=== PATIENT | female | born 1995 | race Caucasian/White ===

== ENCOUNTER 2019-03-20 23:51 | Inpatient (IN) ==
[2019-03-21] MEDS ORDERED: LACTATED RINGER'S 1,000 ML IV SCH ×3 (00:15→03:00)
[2019-03-21] MEDS ORDERED: CEFAZOLIN 2000MG 2,000 MG/15 ML SYR IV STA (00:25)
[2019-03-21] MEDS ORDERED: CITRIC ACID/SODIUM CITRATE 15 ML UDC PO STA (00:26)
[2019-03-21 00:37] LABS: Basophils # (auto) 0.01 K/uL (0-0.2); Basophils % (auto) 0.1 %; Eosinophils # (auto) 0.05 K/uL (0-0.5); Eosinophils % (auto) 0.6 %; Hematocrit (blood only) 32.5 % (37-47); Hemoglobin 10.9 g/dL (12.0-16.0); Immature Granulocytes # (auto) 0.02 K/uL (0.00-0.02); Immature Granulocytes % (auto) 0.2 %; Lymphocytes # (auto) 1.95 K/uL (1.2-3.4); Lymphocytes % (auto) 23.9 %; Mean Corpuscular Volume 83.8 fL (80-100); Mean Platelet Volume 12.3 fL (7.4-10.4); Monocytes # (auto) 0.67 K/uL (0.11-0.59); Monocytes % (auto) 8.2 %; Neutrophils # (auto) 5.45 K/uL (1.4-6.5); Platelet Count 131 K/uL (130-400); RDW Coefficient of Variation 15.1 % (11.5-14.5); RDW Standard Deviation 46.4 fL (36.4-46.3); Red Blood Count 3.88 M/uL (4.2-5.4); White Blood Count 8.15 K/uL (4.8-10.8)
[2019-03-21 00:39] LABS: Mean Corpuscular Hgb Conc 33.5 g/dL (32-36)
[2019-03-21] MEDS ORDERED: MoRPHine SULFATE PF 1 MG/ML 10 ML AMP/VIAL ONE (01:30)
[2019-03-21] MEDS ORDERED: fentaNYL citrate 100 MCG/2 ML VIAL ONE (01:30)
[2019-03-21] MEDS ORDERED: OXYTOCIN 10 UNITS/ML VIAL ONE ×2 (02:04→02:20)
[2019-03-21] MEDS ORDERED: ONDANSETRON INJ 2 MG/ML 2 ML VIAL ONE (02:07)
[2019-03-21] MEDS ORDERED: DEXAMETHASONE SOD INJ 4 MG/ML VIAL ONE (02:21)
[2019-03-21] MEDS ORDERED: BENZOCAINE 20% AER SPR 82.5 GM CAN EXT PRN (02:48)
[2019-03-21] MEDS ORDERED: DIPHTHERIA/TETANUS/PERTUSSIS 0.5 ML SYR/VIAL IM ONE (02:48)
[2019-03-21] MEDS ORDERED: SENNA 8.6 MG TAB PO PRN (02:48)
[2019-03-21] MEDS ORDERED: SUPERCREAM 0.870% 15 GM JAR EXT PRN (02:48)
[2019-03-21] MEDS ORDERED: MAGNESIUM HYDROXIDE SUSP 30 ML UDC PO PRN (02:48)
[2019-03-21] MEDS ORDERED: HYDROCORTISONE ACETATE 25 MG SUPP PR PRN (02:48)
[2019-03-21] MEDS ORDERED: NALBUPHINE HCL INJ 10 MG/ML AMP IV PRN (02:54)
[2019-03-21] MEDS ORDERED: NALOXONE HCL 1 MG in SODIUM CHLORIDE 0.9% 1000ML 1,000 ML IV PRN (02:54)
[2019-03-21] MEDS ORDERED: LACTATED RINGER'S 500 ML IV PRN (02:54)
[2019-03-21] MEDS ORDERED: PROMETHAZINE HCL 25 MG in SODIUM CHLORIDE 0.9% 50 ML IV PRN ×2 (02:54→20:55)
[2019-03-21] MEDS ORDERED: MoRPHine SULFATE PF 1 MG/ML 10 ML AMP/VIAL INT SPINAL ONE (02:54)
[2019-03-21] MEDS ORDERED: ONDANSETRON INJ 2 MG/ML 2 ML VIAL IV PRN ×2 (02:54→20:55)
[2019-03-21] MEDS ORDERED: NALOXONE HCL 0.08 MG in SYRINGE 1.8 ML IV PRN (02:54)
[2019-03-21] MEDS ORDERED: ePHEDrine sulfate 50 MG/ML AMP IV PRN (02:54)
[2019-03-21] MEDS ORDERED: DiphenhydrAMINE HCL 50 MG/ML VIAL IV PRN ×2 (02:54→20:55)
[2019-03-21] MEDS ORDERED: NALOXONE HCL 0.4 MG/1 ML VIAL/CARP IV PRN (02:54)
--- NOTE | 2019-03-21 02:59 | Anesthesiology Progress Note ---
Date of Service March 21, 2019 Anesthesia Post Procedure Vital Signs Vital Signs: Temp Pulse Resp BP Pulse Ox 03/21/19 02:57 67 100 03/21/19 02:54 63 126/68 03/21/19 00:06 82 120/56 L 03/21/19 00:01 36.9 C 18 03/20/19 23:59 36.9 C 18 Transfer of Care Handoff Completed per policy Notes Mental Status: alert / awake / arousable Patient Amnestic to Procedure: Yes Nausea / Vomiting: adequately controlled Pain: adequately controlled Airway Patency, RR, SpO2: stable & adequate BP & HR: stable & adequate Hydration State: stable & adequate Neuraxial Anesthesia: was administered and sensory block is resolving Anesthetic Complications: no major complications apparent
[2019-03-21] MEDS ORDERED: DC INTRASPINAL MORPHINE SCH (03:00)
[2019-03-21] MEDS ORDERED: NO NARCOTICS OR SEDATIVES SCH (03:00)
[2019-03-21] MEDS ORDERED: SODIUM CHLORIDE 0.9% 1000ML 1,000 ML IV SCH (03:00)
[2019-03-21] MEDS: KETOROLAC 30 MG/ML VIAL IV PRN ×2 (03:37→14:48)
[2019-03-21] MEDS: OXYTOCIN 20 UNITS in LACTATED RINGER'S 1,000 ML IV SCH ×2 (06:33→14:54)
[2019-03-21] MEDS: SIMETHICONE 80 MG CHEW PO SCH ×4 (07:35→21:07)
[2019-03-21] MEDS: FERROUS SULFATE 325 MG TAB PO SCH (07:35)
[2019-03-21] MEDS: PRENATAL VITAMIN 1 TAB PO SCH (07:35)
[2019-03-21] MEDS: DOCUSATE SODIUM 100 MG CAP PO SCH ×2 (07:35→21:07)
--- NOTE | 2019-03-21 08:24 | Anesthesiology Progress Note ---
Date of Service March 21, 2019 Anesthesia Post Procedure Vital Signs Vital Signs: Temp Pulse Resp BP Pulse Ox 03/21/19 05:37 72 119/55 L 03/21/19 05:30 36.9 C 18 03/21/19 05:17 65 98 03/21/19 05:12 68 92 03/21/19 05:07 64 95 03/21/19 05:06 65 121/64 03/21/19 05:02 64 98 03/21/19 05:01 59 L 120/57 L 03/21/19 05:00 18 03/21/19 04:58 63 160/93 H 03/21/19 04:57 69 96 03/21/19 04:52 68 92 03/21/19 04:47 65 93 03/21/19 04:46 64 118/65 03/21/19 04:42 63 95 03/21/19 04:37 63 112/57 L 99 03/21/19 04:32 64 97 03/21/19 04:30 18 03/21/19 04:27 70 97 03/21/19 04:26 65 118/67 03/21/19 04:22 74 96 03/21/19 04:17 68 92 03/21/19 04:16 65 116/63 03/21/19 04:12 68 92 03/21/19 04:07 67 93 03/21/19 04:06 66 118/64 03/21/19 04:02 66 93 03/21/19 04:00 16 03/21/19 03:57 68 94 03/21/19 03:56 66 120/66 03/21/19 03:52 68 96 03/21/19 03:50 16 03/21/19 03:47 65 99 03/21/19 03:46 63 120/67 03/21/19 03:42 63 98 03/21/19 03:40 16 03/21/19 03:37 62 98 03/21/19 03:36 59 L 119/67 03/21/19 03:32 64 98 03/21/19 03:30 18 03/21/19 03:27 63 99 03/21/19 03:26 60 120/70 03/21/19 03:22 66 99 03/21/19 03:20 18 03/21/19 03:17 64 99 03/21/19 03:16 66 124/67 03/21/19 03:12 62 98 03/21/19 03:10 18 03/21/19 03:07 61 123/68 100 03/21/19 03:02 62 100 03/21/19 03:00 18 03/21/19 02:57 67 100 03/21/19 02:54 63 126/68 03/21/19 00:06 82 120/56 L 03/21/19 00:01 36.9 C 18 03/20/19 23:59 36.9 C 18 Pain Intensity Lower Abdomen: Pain Intensity: 2 Transfer of Care Handoff Completed per policy Notes Mental Status: alert / awake / arousable Patient Amnestic to Procedure: Yes Nausea / Vomiting: adequately controlled Pain: adequately controlled Airway Patency, RR, SpO2: stable & adequate BP & HR: stable & adequate Hydration State: stable & adequate Anesthetic Complications: no major complications apparent
[2019-03-21] MEDS: METHADONE ORAL SOLN 2 MG/ML PO SCH (08:40)
[2019-03-21] MEDS ORDERED: PATIENT'S OWN CONTROLLED MED PO SCH (09:00)
[2019-03-21] MEDS ORDERED: METHADONE 150 MG PO SCH (09:00)
[2019-03-21] MEDS ORDERED: GABAPENTIN 800 MG TAB PO PRN (20:45)
[2019-03-21] MEDS ORDERED: KETOROLAC 30 MG/ML VIAL IV PRN (20:55)
--- NOTE | 2019-03-22 05:24 | Obstetrical Progress Note ---
Date of Service <Fredi Castro MD - Last Filed: 03/22/19 07:44> March 22, 2019 Assessment & Plan <Fredi Castro MD - Last Filed: 03/22/19 07:44> Day #:: 1 ([23 y/o s/p C/S @ 39+3, w/ HCV on Methadone] -POD# 1 - GBS neg., Blood Type A- - Feels well today. Eating well, voiding well, ambulating well. - Pain well controlled. - Routine post care - After discharge will have [address] Paige.) Subjective <Fredi Castro MD - Last Filed: 03/22/19 07:44> Ambulation: ambulating normally Passing Gas:: Yes Diet Tolerance:: regular diet Lochia:: Moderate Feeding Type:: bottle feeding Current Pain Level(1-10): 3 Physical Exam <Fredi Castro MD - Last Filed: 03/22/19 07:44> OB PE General: Alert, oriented. No acute distress. Cardiac: Regular rate and rhythm, no murmurs/rubs/gallops. Respiratory: Clear to auscultation anterior and posteriorly, no wheezes/rales/rhonchi. No increased work of breathing. Symmetrical chest rise. No respiratory distress. Abdomen: Soft, nontender, nondistended. Bowel sounds present. Uterus: Uterine fundus firm, palpable 1 cm below umbilicus. Lower Extremities: No lower extremity edema or swelling. No deep calf pain. Esdras's negative bilaterally. OB ROS Denies fever, chills, sweats COUGH (attributes to smoking) Denies shortness of breath, difficulty breathing, chest pain, palpitations, chest pressure. Denies breast pain. Denies dysuria. Denies headache. Results & Data <Fredi Castro MD - Last Filed: 03/22/19 07:44> Vital Signs (Past 12 Hours) Vital Signs Temp Pulse Resp BP Pulse Ox 03/22/19 00:40 36.7 C 80 18 118/70 99 03/21/19 21:41 18 99 03/21/19 20:00 36.9 C 84 18 114/72 100 <Lyric Lou MD, FACOG - Last Filed: 03/22/19 07:55> Co-Signing Physician Notes Resident Physician Supervision Note: I interviewed and examined the patient. Discussed with Dr. Castro and agree with findings and plan as documented in the note. Any exceptions or clarifications are listed here: Doing well. continue routine pp care. SS consult pending. Documented By: Lyric Lou MD, FACOG
[2019-03-22] MEDS: IBUPROFEN 600 MG TAB PO PRN ×3 (06:28→21:02)
[2019-03-22] MEDS: OXYCODONE/ACETAMINOPHEN 5mg/325mg TAB PO PRN ×4 (06:29→21:04)
[2019-03-22 06:57] LABS: Hematocrit (blood only) 33.1 % (37-47); Hemoglobin 10.5 g/dL (12.0-16.0); Mean Corpuscular Hgb Conc 31.7 g/dL (32-36); Mean Corpuscular Volume 87.8 fL (80-100); Mean Platelet Volume 12.6 fL (7.4-10.4); RDW Coefficient of Variation 15.5 % (11.5-14.5); RDW Standard Deviation 49.9 fL (36.4-46.3); Red Blood Count 3.77 M/uL (4.2-5.4); White Blood Count 9.07 K/uL (4.8-10.8)
[2019-03-22 07:19] LABS: Basophils # (auto) 0.02 K/uL (0-0.2); Basophils % (auto) 0.2 %; Eosinophils # (auto) 0.06 K/uL (0-0.5); Eosinophils % (auto) 0.7 %; Giant Platelets 1+; Immature Granulocytes # (auto) 0.01 K/uL (0.00-0.02); Immature Granulocytes % (auto) 0.1 %; Lymphocytes # (auto) 3.06 K/uL (1.2-3.4); Lymphocytes % (auto) 33.7 %; Monocytes # (auto) 0.84 K/uL (0.11-0.59); Monocytes % (auto) 9.3 %; Neutrophils # (auto) 5.08 K/uL (1.4-6.5); Nucleated RBC # (auto) 0.02 K/uL (0-0); Nucleated RBC % (auto) 0.2 %; Platelet Count 117 K/uL (130-400); Platelet Estimate Decreased (Normal)
[2019-03-22] MEDS: SIMETHICONE 80 MG CHEW PO SCH ×4 (08:00→21:50)
[2019-03-22] MEDS: FERROUS SULFATE 325 MG TAB PO SCH (08:00)
[2019-03-22] MEDS: DOCUSATE SODIUM 100 MG CAP PO SCH ×2 (08:00→21:50)
[2019-03-22] MEDS: PRENATAL VITAMIN 1 TAB PO SCH (08:00)
[2019-03-22] MEDS: METHADONE ORAL SOLN 2 MG/ML PO SCH (09:07)
[2019-03-22] MEDS ORDERED: BISACODYL 5 MG TABEC PO SCH (20:00)
[2019-03-23] MEDS: IBUPROFEN 600 MG TAB PO PRN ×2 (01:01→06:38)
[2019-03-23] MEDS: OXYCODONE/ACETAMINOPHEN 5mg/325mg TAB PO PRN ×2 (01:02→06:39)
[2019-03-23] MEDS ORDERED: BISACODYL 10 MG SUPP PR PRN (02:48)
[2019-03-23 06:36] LABS: Hematocrit (blood only) 30.9 % (37-47); Hemoglobin 9.9 g/dL (12.0-16.0)
--- NOTE | 2019-03-23 07:41 | Obstetrical Progress Note ---
Date of Service March 23, 2019 Assessment & Plan (1) Delivery by section: Doing well s/p section. Will d/c today, instructions reviewed. Present on Admission?: Yes Subjective Ambulation: ambulating normally Voiding: no voiding problems Passing Gas:: Yes Diet Tolerance:: regular diet Lochia:: Small Feeding Type:: bottle feeding Current Pain Level(1-10): 0 Physical Exam Constitutional WD/WN, vitals as above Eyes PERRL, conjunctivae normal, anicteric sclerae ENMT external ear and nose normal, oropharynx normal Neck trachea midline, no thyromegaly Respiratory normal respiratory effort and able to speak in complete sentences; no respiratory distress, no labored breathing and does not use accessory muscles Cardiovascular Rate/Rhythm: regular rate and regular rhythm Extremities: no calf tenderness and no pedal edema Chest (Breasts) Breast: normal inspection of breasts Gastrointestinal (Abdomen) Inspection/Auscultation: abdomen normal to inspection and + abdominal surgical incision (C/d/i); abdomen not distended Musculoskeletal no cyanosis or clubbing, extremities motor strength 5/5 Skin no rashes, warm and dry Neurologic patellar DTR's 2+ bilat, sensation intact Psychiatric A+Ox3, euthymic affect Genitourinary Speculum/Bimanual Exam: uterus nontender OB Exam Abdomen: + fundal height (at umbilicus) Fundus: + firm Results & Data Vital Signs (Past 12 Hours) Vital Signs Temp Pulse Resp BP Pulse Ox 03/22/19 23:30 36.8 C 68 20 126/73 97
[2019-03-23] MEDS: PRENATAL VITAMIN 1 TAB PO SCH (08:52)
[2019-03-23] MEDS: SIMETHICONE 80 MG CHEW PO SCH (08:52)
[2019-03-23] MEDS: FERROUS SULFATE 325 MG TAB PO SCH (08:52)
[2019-03-23] MEDS: DOCUSATE SODIUM 100 MG CAP PO SCH (08:52)
[2019-03-23] MEDS: METHADONE ORAL SOLN 2 MG/ML PO SCH (08:53)
--- NOTE | 2019-03-25 15:06 | Operative Report ---
DATE OF OPERATION: 03/21/2019 PROCEDURE: Primary elective low transverse section. SURGEON: Gilbert Paige MD PREOPERATIVE DIAGNOSES: 1. Single intrauterine at 39 weeks 3 days gestational age. 2. History of previous shoulder dystocia desiring elective primary section. 3. Maternal drug dependence, currently on methadone. 4. Hepatitis C affecting . 5. Anxiety. POSTOPERATIVE DIAGNOSES: 1. Single intrauterine at 39 weeks 3 days gestational age. 2. History of previous shoulder dystocia desiring elective primary section. 3. Maternal drug dependence, currently on methadone. 4. Hepatitis C affecting . 5. Anxiety. 6. Status post procedure. ESTIMATED BLOOD LOSS: 600 mL. DRAINS: Qureshi. FLUIDS: Continuous lactated ringer. URINE OUTPUT: See EMR. COMPLICATIONS: None. FINDINGS: Viable with weight pending, Apgars of 8 and 9 at 1 and 5 minutes respectively. INDICATIONS: Ms. Mayen is a 23-year-old G2, P1-0-0-1 with an EDC of 03/25/2019. The patient presented with spontaneous rupture of membranes that occurred several hours prior to time of admission. The patient was scheduled elective primary section for history of prior shoulder dystocia which the patient felt was quite traumatic for her. The patient was counseled in clinic on a vaginal delivery versus a primary for prior shoulder dystocia. The risks and benefits of each option were discussed in detail including the risk of possible recurrent shoulder dystocia versus the risks of a surgery including the risks of injury to internal organs, heavier bleeding and longer recovery course. After thorough discussion, the patient opted to proceed with a primary elective section for prior shoulder dystocia. Consents for the procedure were again reviewed prior to procedure and were signed by the patient as these were previously signed in clinic with Dr. Lyric Lou. DESCRIPTION OF PROCEDURE: The patient was taken to the operating room after consents were ensured. Upon presentation, she was properly identified. Spinal anesthesia was obtained without difficulty. The patient was then prepped and draped in the normal sterile fashion. A Qureshi was placed prior to prepping. Proper anesthesia levels were then tested. A Pfannenstiel incision was then made with the knife. This was carried down to underlying fascia with the Bovie. The fascia was nicked at the midline with the knife. The fascia was then extended lateral in each direction with pickamber and Thompson scissors. The superior aspect of the fascia was then grasped with Kochers x2, elevated off the underlying rectus muscles using blunt dissection and the knife. The inferior aspect of the fascia was grasped with Kochers x2, elevated off the underlying rectus muscles using blunt dissection and the knife. The midline was then entered bluntly and placed on stretch to provide adequate room for delivery. Bladder blade was inserted and bladder flap was created in the normal fashion. A low transverse uterine incision was then made. The membranes were ruptured bluntly and were noted to have clear fluid. The head of the was noted to be in cephalic position and was delivered through the hysterotomy without difficulty. Body and shoulders quickly followed. The was noted to be vigorous upon delivery and a 1-minute delayed cord clamping was initiated. The cord was then double clamped and the was handed off to the waiting nursery staff. Cord blood was then obtained. Attention was then turned to delivery of the placenta, which was delivered intact with 3-vessel cord with uterine massage and gentle cord traction. Uterus was then exteriorized, was wrapped in a wet lap and several passes were made inside to remove any remaining membranes and debris. The hysterotomy was then closed with 0 Vicryl continuous running locked suture. A second imbricating layer of 0 Vicryl was then performed. The uterus was noted to have excellent hemostasis and the posterior cul-de-sac was cleaned of clots and debris. The uterus was then returned to maternal abdomen. The left and right pericolic gutters were cleaned of clots and debris. The hysterotomy was reinspected and noted to be hemostatic. The subcutaneous layers, fascia and muscle layers were inspected and noted to be hemostatic. The fascia was then closed with 0 Vicryl and with a continuous running stitch. The subcutaneous layers were reapproximated with 2-0 plain in a single continuous running stitch. The skin was reapproximated with 3-0 Vicryl on a Simeon needle. Needle, sponge and instrument counts were correct at the completion of the case. Both mother and were stable in immediate post-delivery. I attest to the content of the Intraoperative Record and any orders documented therein. Any exception s are noted below.
--- NOTE | 2019-03-25 15:10 | Discharge Summary ---
PROCEDURE: Prior elective low transverse section. HOSPITAL COURSE: The patient was admitted for spontaneous rupture of membranes at 39 weeks 3 days gestational age. The patient had previously opted to proceed with an elective primary section for prior shoulder dystocia. The risks of the procedure and the patient's desire to proceed with the primary elective section for shoulder dystocia were reviewed. After the patient was admitted for spontaneous rupture of membranes, the patient did desire to proceed with an elective section. Consents were reviewed and signed. The patient was then taken to the operating room and the procedure was performed without difficulty. The patient remained in house for 3 days recovery course without complication. The patient was discharged on hospital day #3 with planned follow up at 6 weeks or as needed. Detailed written and verbal instructions for and postoperative care were discussed.
== END 2019-03-23 10:40 | disposition home or self-care (01) | DRG 788 ==
LOC: OPB 23:51 → 4S1 23:54 → 4S2 03-21 07:00

== ENCOUNTER 2021-08-29 05:41 | Inpatient (IN) ==
--- NOTE | 2021-08-19 11:03 | Anesthesiology Consultation ---
Date of Service August 19, 2021 Assessment & Plan (1) Encounter for pre-operative examination: Chart Review Chart Review: entry writer initiated Per nursing assessment 08/19/21, patient denies any recent travel. No known Covid positive contacts or Covid related symptoms. No known Covid infection in the past 90 days. Pt is NOT vaccinated for Covid. Preop Covid testing scheduled 08/25/21= will await results MFM Consult note 06/04/21= patient seen for questionable brain bleed on anatomy scan, Hep C, methadone use. Found to have "echogenic linear structure" on right side of brain. Ultrasound done in office that day showed no evidence of anomaly. However on some views it did show an echogenic reflection of lateral ventricle of uncertain significance. Reassured likelihood that baby's brain structurally normal- will order MRI to further assess. History of opioid abuselast used November 2016now stable on methadone. The metabolism of methadone generally increases with advancing gestational age, which may require higher doses or split dosing to maintain its therapeutic effects as the progresses. Methadone crosses the placenta in greater amounts in late . Not clearly associated with structural defects. However it has been associated with increased risk of adverse outcomes such as , small for gestational age infants, low birthweight, decreased head circumference, and NICU admission over the general population. Neonatology consult would be helpful and can be scheduled by her provider. Hep C- not yet treated but would like treatment after . Emergent 03/21/19 (presented with spontaneous rupture of membranes- had been scheduled for elective for history of prior shoulder dystocia/traumatic for patient) = SAB done at L3-4 with 1 attempt. History Surgery Operation Date: 08/29/21 07:30 Proposed Procedures p Section in LD - Delfina Avila MD, FACOG s Post Tubal Ligation Labor & Deliv - Delfina Avila MD, FACOG Height/Weight Height: 5 ft 7 in Weight: 83.461 kg Allergies Allergy/AdvReac Type Severity Reaction Status Date / Time amoxicillin [From Augmentin] Allergy Mild Rash Verified 08/19/21 10:12 clavulanic acid Allergy Mild Rash Verified 08/19/21 10:12 [From Augmentin] Medications Home Medications Medication Instructions Recorded Confirmed Last Taken prenat.vits,daniella,[id number] 1 tab PO DAILY #90 tab 03/23/21 08/19/21 Unknown methadone 10 mg/mL oral concentrate 174 mg PO QAM 08/19/21 08/19/21 Unknown Past Medical History Medical History (Updated 08/19/21 @ 11:09 by Lita Sims PA-C) Anxiety and depression Cardiac murmur MILD>ONLY HEARD 1X (NO CARDS) No murmur noted per 03/2021 ER visit GERD (gastroesophageal reflux disease) DURING Hepatitis C, chronic Low grade squamous intraepithelial lesion (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 Maternal drug dependence, antepartum Opiate addiction REASON FOR METHADONE>HX HEROIN (LAST USED 4 YEARS) Short interval between pregnancies affecting , antepartum Tobacco smoking affecting in first trimester Past Family History Family History Grandfather (Maternal) Family hx of colon cancer Grandmother (Maternal) Breast cancer Grandmother (Paternal) Kidney malignancy Grandfather (Paternal) Myocardial infarction Stroke Other No family history of adverse response to anesthesia Past Surgical History Surgical History History of section X 1 [place] teeth removed Social History Smoking Status: Current some day smoker tobacco type: cigarettes Smoking cigarettes per day: 3 CIG DAILY Do You Dip or Chew Tobacco: No Hx Alcohol Use: No Hx Substance Use: Yes substance use type: marijuana Last Used Substance Other:: LAST USED A COUPLE MONTHS Lab Results Anesthesia Preop Results Results Anesthesia Widget: Hgb 11.0 g/dL (12.0-16.0) L 07/14/21 Hct 34.4 % (37-47) L 07/14/21 Na 136 mmol/L (136-145) 07/14/21 K 3.5 mmol/L (3.5-5.1) 07/14/21 Cl 106 mmol/L (98-107) 07/14/21 CO2 22 mmol/L (21-32) 07/14/21 BUN 7 mg/dl (7-18) 07/14/21 Creat 0.57 mg/dl (0.6-1.2) L 07/14/21 Glucose Level 107 mg/dl (70-99) H 07/14/21 Urine Color Dark Yellow 07/14/21 Urine Appearance Cloudy (Clear) A 07/14/21 Urine pH 6.0 (4.5-7.5) 07/14/21 Urine Specific [place] 1.025 (1.000-1.030) 07/14/21 Urine Protein Trace (Negative) H 07/14/21 Urine Glucose (UA) Negative (Negative) 07/14/21 Urine Ketones 1+ (Negative) H 07/14/21 Urine Blood Negative (Negative) 07/14/21 Urine Nitrite Negative (Negative) 07/14/21 Urine Bilirubin Negative (Negative) 07/14/21 Urine Urobilinogen Negative (Negative) 07/14/21 Urine Leukocyte Esterase Trace (Negative) H 07/14/21 Urine WBC (Auto) >30 /hpf (0-5) H 07/14/21 Urine RBC (Auto) 0-4 /hpf (0-4) 07/14/21 Urine Hyaline Casts (Auto) 1-5 /lpf (0-5) 07/14/21 Urine Epithelial Cells (Auto) >30 /lpf (0-5) H 07/14/21 Urine Bacteria (Auto) 2+ (Negative) H 07/14/21 Urine Yeast Not Reportable 07/14/21 Testing Laboratory Results 07/14/21= URINE CULTURE: Lactobacillus species >100,000 CFU/ml. No sensitives to follow Other Testing MRI (? brain bleed) 08/02/21= There is no correlate identified in the brain for the "echogenic linear streak" reported on outside ultrasound. No gross evidence of invasive placenta. Continued close follow up and post nasal imaging as warranted.
--- NOTE | 2021-08-22 16:41 | History & Physical Report ---
Date of Service August 22, 2021 Assessment & Plan (1) Previous section complicating : Plan: IUP at 39 weeks presents for repeat C/S and bilateral tubal ligation because of multiparity and unwanted fertility. The procedures and the risks were reviewed with the patient and all questions were answered to her satisfaction. History of Present Illness Primary Care Provider: NO PCP Patient is a 26 yo white female EDC 08/31/21 who presents at 39 weeks for repeat C/S and tubal ligation. Prior C/S done because of prior shoulder dystocia with first delivery. complicated by abnormal anatomy scan and possible accreta but both were ruled out at consult with [facility]. also complicated by (+) for Hepatitis C and methadone dependency. Patient requesting repeat C/S and bilateral tubal ligation. GBS (-) Allergies Allergy/AdvReac Type Severity Reaction Status Date / Time amoxicillin [From Augmentin] Allergy Mild Rash Verified 08/19/21 10:12 clavulanic acid Allergy Mild Rash Verified 08/19/21 10:12 [From Augmentin] Home Medications Medication Instructions Recorded Confirmed Type prenat.vits,daniella,[id number] 1 tab PO DAILY #90 tab 03/23/21 08/19/21 Rx methadone 10 mg/mL oral concentrate 174 mg PO QAM 08/19/21 08/19/21 History Patient History Medical History Anxiety and depression Cardiac murmur MILD>ONLY HEARD 1X (NO CARDS) No murmur noted per 03/2021 ER visit GERD (gastroesophageal reflux disease) DURING Hepatitis C, chronic Low grade squamous intraepithelial lesion (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 Maternal drug dependence, antepartum Opiate addiction REASON FOR METHADONE>HX HEROIN (LAST USED 4 YEARS) Short interval between pregnancies affecting , antepartum Tobacco smoking affecting in first trimester Surgical History History of section X 1 [place] teeth removed Family History Grandfather (Maternal) Family hx of colon cancer Grandmother (Maternal) Breast cancer Grandmother (Paternal) Kidney malignancy Grandfather (Paternal) Myocardial infarction Stroke Other No family history of adverse response to anesthesia Social History Smoking Status: Current some day smoker Tobacco Type: Cigarettes Cigarettes Per Day: 3 CIG DAILY; Second Hand Exposure: No; Hx Alcohol Use: No Hx Substance Use: Yes Last Used Substance Other:: LAST USED A COUPLE MONTHS Preferred Language: Hebrew Communication Ability: Effective Visual Impairment: No Limitations Hearing Ability: Normal Small Arms Artillery Repairer Required: No Beliefs That Will Affect Care: None marital status: Life Partner marital status details: Chema Arvizu (28) [phone] Current Living Situation: Family Current Living Situation 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: 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 current occupational status: 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
[2021-08-29] MEDS ORDERED: LACTATED RINGER'S 1,000 ML IV SCH ×3 (05:45→09:22)
[2021-08-29] MEDS ORDERED: ceFAZolin 2,000 MG in SYRINGE 0 ML IV SCH (06:00)
[2021-08-29] MEDS ORDERED: CITRIC ACID/SODIUM CITRATE 15 ML UDC PO SCH (06:00)
[2021-08-29 06:48] LABS: Hematocrit (blood only) 35.2 % (37-47); Hemoglobin 10.9 g/dL (12.0-16.0); Mean Corpuscular Hemoglobin 24.5 pg (25-34); Mean Corpuscular Volume 79.3 fL (80-100); RDW Coefficient of Variation 15.9 % (11.5-14.5); Red Blood Count 4.44 M/uL (4.2-5.4); White Blood Count 7.02 K/uL (4.8-10.8)
[2021-08-29 06:51] LABS: Platelet Count 135 K/uL (130-400)
[2021-08-29 06:52] LABS: Basophils # (auto) 0.01 K/uL (0-0.2); Basophils % (auto) 0.1 %; Eosinophils # (auto) 0.05 K/uL (0-0.5); Eosinophils % (auto) 0.7 %; Immature Granulocytes # (auto) 0.02 K/uL (0.00-0.02); Immature Granulocytes % (auto) 0.3 %; Lymphocytes # (auto) 2.15 K/uL (1.2-3.4); Lymphocytes % (auto) 30.6 %; Monocytes # (auto) 0.61 K/uL (0.11-0.59); Monocytes % (auto) 8.7 %; Neutrophils # (auto) 4.18 K/uL (1.4-6.5); Neutrophils % (auto) 59.6 %; Platelet Estimate Decreased (Normal)
[2021-08-29] MEDS ORDERED: fentaNYL citrate 100 MCG/2 ML VIAL ONE (06:59)
[2021-08-29] MEDS ORDERED: MoRPHine SULFATE PF 1 MG/ML 10 ML AMP/VIAL ONE (06:59)
[2021-08-29] MEDS ORDERED: KETOROLAC 30 MG/ML VIAL ONE (07:01)
[2021-08-29] MEDS ORDERED: OXYTOCIN 10 UNITS/ML 10ML VIAL ONE ×3 (07:01→08:50)
[2021-08-29] MEDS ORDERED: ONDANSETRON INJ 2 MG/ML 2 ML VIAL ONE ×2 (07:01→08:12)
[2021-08-29] MEDS ORDERED: PHENYLEPHRINE 100MCG/ML 5ML SYR ONE (07:22)
--- NOTE | 2021-08-29 07:22 | History & Physical Bridge Note ---
Date of Service August 29, 2021 History & Physical Bridge Note I have examined the patient, reviewed the History & Physical and in the interval since the performance of the History & Physical I have noted the following changes of clinical significance: no changes noted
[2021-08-29 07:52] LABS: Amphetamines+Metham, Urine Neg (Neg); Barbiturates, Urine Neg (Neg); Benzodiazepine, Urine Neg (Neg); Cocaine, Urine Neg (Neg); MDMA (Ecstacy), Urine Neg (Neg); Methadone, Urine Pos (Neg); Opiate, Urine Neg (Neg); Phencyclidine, Urine Neg (Neg)
[2021-08-29] MEDS ORDERED: METHADONE ORAL SOLN 2 MG/ML PO SCH (08:00)
[2021-08-29] MEDS ORDERED: PATIENT'S OWN CONTROLLED MED 1 PO SCH (08:00)
[2021-08-29] MEDS ORDERED: NALOXONE HCL 0.08 MG in SYRINGE 1.8 ML IV PRN (08:15)
[2021-08-29] MEDS ORDERED: ACETAMINOPHEN 1000 MG/100 ML IV IV PRN (08:15)
[2021-08-29] MEDS ORDERED: NALBUPHINE HCL INJ 10 MG/ML AMP IV PRN (08:15)
[2021-08-29] MEDS ORDERED: LACTATED RINGER'S 500 ML IV PRN (08:15)
[2021-08-29] MEDS ORDERED: MoRPHine SULFATE PF 1 MG/ML 10 ML AMP/VIAL INT SPINAL ONE (08:15)
[2021-08-29] MEDS ORDERED: ONDANSETRON INJ 2 MG/ML 2 ML VIAL IV PRN ×2 (08:15→09:22)
[2021-08-29] MEDS ORDERED: SODIUM CHLORIDE 0.9% 1000ML 1,000 ML IV SCH (08:15)
[2021-08-29] MEDS ORDERED: ePHEDrine sulfate 50 MG/ML AMP IV PRN (08:15)
[2021-08-29] MEDS ORDERED: NALOXONE HCL 0.4 MG/1 ML VIAL/CARP IV PRN (08:15)
[2021-08-29] MEDS ORDERED: NO NARCOTICS OR SEDATIVES SCH (08:15)
[2021-08-29] MEDS ORDERED: NALOXONE HCL 1 MG in SODIUM CHLORIDE 0.9% 1000ML 1,000 ML IV PRN (08:15)
[2021-08-29] MEDS ORDERED: DC INTRASPINAL MORPHINE SCH (08:15)
[2021-08-29] MEDS ORDERED: diphenhydrAMINE 50 MG/ML VIAL IV PRN (08:15)
--- NOTE | 2021-08-29 09:08 | Post Operative Brief Note ---
PG Immediate Post Op with CF Date of Surgery August 29, 2021 Pre & Post Diagnosis Operation Date: 08/29/21 07:30 Pre-Op Diagnosis: Hx of Section; Desire for permanent sterilization Post-Op Diagnosis: Hx of Section; Desire for Permanent Sterilization I identified the patient and participated in the time-out.: Yes Procedure Operation Date: 08/29/21 07:30 Actual Procedures p Section; DELIVERY OF LIVE MALE AT 0816 - Delfina Avila MD, FACOG s Bilateral Tubal Ligation - Delfina Avila MD, FACOG Surgeon Delfina Avila MD, FACOG It Web Development Consultant Angela Amanda MD, Kwame Salas MD Estimated Blood Loss 650 Findings Consistent with Post-Op Diagnosis Specimens Specimen Description: A. CORD BLOOD B. PLACENTA-HOLD C. PORTION OF RIGHT AND LEFT FALLOPIAN TUBE Drains Qureshi Catheter (INSERTED AFTER SPINAL WITH RETURN OF CLEAR YELLOW URINE) Anesthesia Type Spinal Complications none Disposition Accompanied Patient To Recovery: Yes
[2021-08-29] MEDS ORDERED: OXYTOCIN 30 UNITS in LACTATED RINGER'S 1,000 ML IV SCH (09:22)
[2021-08-29] MEDS ORDERED: DIPHTHERIA/TETANUS/PERTUSSIS 0.5 ML SYR/VIAL IM ONE (09:22)
[2021-08-29] MEDS ORDERED: BENZOCAINE 20% AER SPR 82.5 GM CAN EXT PRN (09:22)
[2021-08-29] MEDS ORDERED: SUPERCREAM 0.870% 15 GM JAR EXT PRN (09:22)
[2021-08-29] MEDS ORDERED: MAGNESIUM HYDROXIDE SUSP 30 ML UDC PO PRN (09:22)
[2021-08-29] MEDS ORDERED: KETOROLAC 30 MG/ML VIAL IV PRN (09:22)
[2021-08-29] MEDS: METHADONE ORAL SOLN 2 MG/ML PO SCH (09:32)
--- NOTE | 2021-08-29 10:22 | Operative Report ---
PG Post Operative Report Pre & Post Diagnosis Operation Date: 08/29/21 07:30 Pre-Op Diagnosis: Hx of Section; Desire for permanent sterilization Post-Op Diagnosis: Hx of Section; Desire for Permanent Sterilization I identified the patient and participated in the time-out.: Yes Procedure Operation Date: 08/29/21 07:30 Actual Procedures p Section; DELIVERY OF LIVE MALE AT 0816 - Delfina Avila MD, FACOG s Bilateral Tubal Ligation - Delfina Avila MD, FACOG Surgeon Delfina Avila MD, FACOG Chief Pilot Angela Amanda MD, Kwame Salas MD Estimated Blood Loss 650 Findings Consistent with Post-Op Diagnosis Specimens placenta and and portions of both left and right tubes Drains Qureshi to straight drainage- clear urine at end of case Anesthesia Type Spinal Complications none Disposition Accompanied Patient To Recovery: Yes Indications Patient is a 26-year-old 4 para 20 1 2 white female who presents for repeat section and bilateral tubal ligation. Her prior section was done electively following a shoulder dystocia with her first vaginal delivery. She is now scheduled for repeat section and bilateral tubal ligation because of unwanted fertility. Description of Procedure After the patient received adequate subarachnoid block she was prepped and draped in usual sterile fashion. A low transverse skin incision was made with a scalpel and carried to the fascia with the same scalpel. The fascial incision was then extended with Thompson scissors. The edges were then grasped with Serene clamps and the underlying rectus muscles were bluntly sharply dissected off of the overlying fascia. The rectus muscles were already on the midline and the peritoneum was entered bluntly. The bladder was then taken down off the anterior surface of the uterus and placed behind the bladder blade. The lower uterine segment was entered with a scalpel and extended transversely. Membranes were ruptured for clear fluid. Infant was delivered from the vertex presentation with moderate fundal pressure. After the head was delivered the re st of the infant delivered easily. The infant was vigorous and crying upon delivery. The cord was then clamped and cut and the infant was handed off to Dr. Shah who was in attendance as band builder. Placenta was then manually removed. The uterus was then exteriorized and covered with a clean lap sponge. The uterine cavity was then explored found be free of any placental tissue or membranes. Uterus was then closed in 2 layers with a running locking imbricating stitch of 0 Monocryl. Hemostasis noted to be excellent. Attention was then turned to the tubal ligation. The right fallopian tube was identified and followed to its fimbriated end, was then grasped in the midportion with a [place] clamp. A knuckle of tube was developed with a tie of 3-0 plain catgut. This was followed by suture ligature of the same. The knuckle of tube was then removed and the edges of the tube were cauterized. The left limited fallopian tube was then identified and followed with fimbriated end. It was grasped along the midportion with a Bernadette clamp. Knuckle of tube was developed with a tie of 3-0 plain Cut followed by single suture ligature of the same. A knuckle tube was then removed. Bleeding at the resection site was controlled with cautery. After suctioning the posterior cul-de-sac for small amount of blood, the uterus was placed gently back in the abdominal cavity. The tubal sites continue to have excellent hemostasis. The uterine incision was examined once more continue to have excellent hemostasis as well. The after the gutters were found to be free of any clot or fluid, the rectus muscle were brought together in the midline with individual stitches of 0 Monocryl a bleeding site on the left rectus muscle was also secured with a [id number] stitch of 0 Monocryl. The fascia was then closed in a running fashion with 0 Vicryl. There are noted to be a bleeder on the right side of the fascial edge and the rectus muscle. This was grasped with a hemostat and cauterized hemostasis was then excellent in this area prior to completing the fascial closure. After irrigating the adipose layer the skin edges were closed with a subcuticular stitch of 4-0 Vicryl. Mother and infant were doing well in the immediate postop time period and were stable upon arrival in labor and delivery. I attest to the content of the Intraoperative Record and any orders documented therein. Any exceptions are noted below. OB Procedure Charges [id number] Add on Tubal for C/S
[2021-08-29] MEDS: HYDROmorphone INJ 0.5 MG/0.5 ML SYR IV PRN ×2 (11:38→16:30)
--- NOTE | 2021-08-29 11:41 | Anesthesiology Progress Note ---
Date of Service August 29, 2021 Anesthesia Post Procedure Vital Signs Vital Signs: Temp Pulse Resp BP Pulse Ox 08/29/21 11:23 71 175/103 H 97 08/29/21 11:18 69 97 08/29/21 11:13 70 96 08/29/21 11:12 78 158/84 H 08/29/21 11:08 67 96 08/29/21 11:03 70 98 08/29/21 11:02 68 156/95 H 08/29/21 10:58 74 97 08/29/21 10:57 71 94 08/29/21 10:53 77 96 08/29/21 10:52 71 135/87 08/29/21 10:49 68 147/89 H 08/29/21 10:48 74 96 08/29/21 10:43 73 97 08/29/21 10:42 71 145/103 H 08/29/21 10:38 68 97 08/29/21 10:33 76 98 08/29/21 10:32 133 H 135/85 08/29/21 10:28 69 97 08/29/21 10:24 82 94 08/29/21 10:23 82 93 08/29/21 10:22 73 153/82 H 08/29/21 10:18 71 97 08/29/21 10:13 82 98 08/29/21 10:12 72 160/86 H 08/29/21 10:08 78 99 08/29/21 10:03 63 99 08/29/21 10:02 68 132/86 08/29/21 09:58 63 99 08/29/21 09:56 62 89 L 08/29/21 09:55 18 08/29/21 09:53 64 99 08/29/21 09:52 56 L 126/82 08/29/21 09:48 66 99 08/29/21 09:46 67 135/82 08/29/21 09:45 18 08/29/21 09:43 65 99 08/29/21 09:38 65 98 08/29/21 09:35 18 08/29/21 09:33 72 147/83 H 100 08/29/21 09:28 60 100 08/29/21 09:27 55 L 79 L 08/29/21 09:26 54 L 118/86 08/29/21 09:25 18 08/29/21 09:22 60 99 08/29/21 09:18 50 L 129/86 08/29/21 09:17 50 L 100 08/29/21 09:15 36.4 C L 18 08/29/21 07:30 18 08/29/21 07:28 72 129/86 08/29/21 06:10 73 154/68 H 08/29/21 06:01 36.7 C 73 20 154/68 H 08/29/21 05:58 82 163/79 H 08/29/21 05:57 36.7 C 20 Pain Intensity Lower Abdomen: Pain Intensity: 7 Transfer of Care Handoff Completed per policy Notes Mental Status: alert / awake / arousable and participated in evaluation Nausea / Vomiting: adequately controlled Pain: adequately controlled Airway Patency, RR, SpO2: stable & adequate BP & HR: stable & adequate Hydration State: stable & adequate Neuraxial Anesthesia: was administered and sensory block is resolving Anesthetic Complications: no major complications apparent and Pt Satisfied with anesthetic care
[2021-08-29] MEDS: SIMETHICONE 80 MG CHEW PO SCH ×3 (12:55→19:38)
[2021-08-29] MEDS: KETOROLAC 30 MG/ML VIAL IV PRN ×2 (14:33→21:28)
[2021-08-29] MEDS: NICOTINE 14 MG/24 HR PATCH TD SCH (16:30)
[2021-08-29] MEDS ORDERED: DOCUSATE SODIUM 100 MG CAP PO ONE (19:37)
[2021-08-29] MEDS ORDERED: SENNA 8.6 MG TAB PO PRN (21:00)
[2021-08-29] MEDS ORDERED: HYDROCORTISONE ACETATE 25 MG SUPP PR PRN (21:00)
[2021-08-29] MEDS: DOCUSATE SODIUM 100 MG CAP PO SCH (21:38)
[2021-08-30] MEDS ORDERED: PROMETHAZINE HCL 25 MG in SODIUM CHLORIDE 0.9% 50 ML IV PRN (02:16)
[2021-08-30] MEDS ORDERED: diphenhydrAMINE Capsule 25 MG CAP PO PRN (02:16)
[2021-08-30] MEDS ORDERED: diphenhydrAMINE 50 MG/ML VIAL IV PRN (02:16)
[2021-08-30] MEDS ORDERED: MEPERIDINE HCL 50 MG/ML CARP IV PRN (02:16)
[2021-08-30] MEDS: IBUPROFEN 600 MG TAB PO PRN ×4 (03:01→23:37)
[2021-08-30] MEDS: oxyCODONE/ACETAMINOPHEN 5mg/325mg TAB PO PRN ×4 (03:02→23:37)
[2021-08-30 05:56] LABS: Mean Corpuscular Hgb Conc 31.2 g/dL (32-36)
[2021-08-30] MEDS: METHADONE ORAL SOLN 2 MG/ML PO SCH (06:03)
[2021-08-30 06:08] LABS: Hematocrit (blood only) 29.5 % (37-47); Hemoglobin 9.2 g/dL (12.0-16.0); Mean Corpuscular Hemoglobin 25.1 pg (25-34); Mean Corpuscular Volume 80.4 fL (80-100); RDW Coefficient of Variation 16.1 % (11.5-14.5); RDW Standard Deviation 46.5 fL (36.4-46.3); Red Blood Count 3.67 M/uL (4.2-5.4); White Blood Count 6.74 K/uL (4.8-10.8)
[2021-08-30 06:28] LABS: Platelet Count 102 K/uL (130-400)
[2021-08-30 06:30] LABS: Basophils # (auto) 0.01 K/uL (0-0.2); Basophils % (auto) 0.1 %; Eosinophils # (auto) 0.05 K/uL (0-0.5); Eosinophils % (auto) 0.7 %; Immature Granulocytes # (auto) 0.01 K/uL (0.00-0.02); Immature Granulocytes % (auto) 0.1 %; Lymphocytes # (auto) 2.01 K/uL (1.2-3.4); Lymphocytes % (auto) 29.8 %; Monocytes # (auto) 0.49 K/uL (0.11-0.59); Monocytes % (auto) 7.3 %; Neutrophils # (auto) 4.17 K/uL (1.4-6.5); Platelet Estimate Decreased (Normal)
--- NOTE | 2021-08-30 06:36 | Obstetrical Progress Note ---
Date of Service August 30, 2021 Assessment & Plan (1) Encounter for supervision of normal in multigravida: Plan: 26 yo ,now , POD 1 s/p LTCS at 39 weeks -Continue routine care -Vitals reviewed- HDS, afebrile -A-, GBS-, Rubella immune, no Rhogam needed as baby is Rh- -Encourage ambulation, regular diet -Pain control with ibuprofen, acetaminophen, percocet PRN -Encourage , provide script for breast pump and consult counselor -Hgb 9.2 -F/u in [address] Matias Admission and Anticipated Discharge Date Admission Date: August 29, 2021 Supervising Physician Co-Signing Physician Notes Resident Physician Supervision Note: I interviewed and examined the patient. Discussed with Dr. Salas and agree with findings and plan as documented in the note. Any exceptions or clarifications are listed here: [None] Documented By: Delfina Avila MD, FACOG Subjective POD 1 s/p LCTS. Patient seen and examined at bedside. Reports no acute overnight events. Ambulating, but has not voided w/o weaver yet. Weaver removed 2 hours prior to interview. Passing gas w/o BM. Regular diet w/o N/V. Lochia small. Pt reports that she attempted , but baby was fussy and had better success with bottle feeding. Pt is requesting breast pump. Pain 4/10 with use of percocet. Review of Systems Review of Systems: Denies fevers/chills. Denies dyspnea, cough. Denies chest pain. Denies breast pain or discharge. Denies dysuria. Denies headache. Denies back pain. Physical Exam Physical Exam: General: Alert, oriented, no acute distress Cardiac: Regular rate and rhythm, normal S1, S2. No murmurs appreciated. Respiratory: Clear to auscultation b/l with good air flow entry, symmetric chest rise and fall. No wheezes or crackles. No increased work of breathing or accessory muscle use Abdomen: Soft, nontender, nondistended. Fundus firm and palpable at 2 cm below umbilicus. Surgical incision clean, dry and intact without erythema, warmth or drainage with bandage in place. Bowel sounds appreciated. No guarding or rebound. Skin: No rashes or lesions Extremities: Warm, dry, well-perfused with capillary refill <2s b/l. No lower extremity edema, erythema or swelling. Negative Esdras's sign b/l. Results & Data ([facility]) Vital Signs (Past 12 Hours) Vital Signs Temp Pulse Pulse Resp BP Pulse Ox 08/30/21 03:05 36.5 C 60 18 130/80 96 08/30/21 02:00 18 98 08/30/21 01:00 16 95 08/30/21 00:00 16 93 08/29/21 23:10 36.8 C 66 18 124/67 96 08/29/21 22:00 16 97 08/29/21 21:30 18 96 08/29/21 20:00 18 95 08/29/21 19:30 37.1 C 74 18 131/82 96
[2021-08-30] MEDS: PRENATAL VITAMIN 1 TAB PO SCH (08:18)
[2021-08-30] MEDS: SIMETHICONE 80 MG CHEW PO SCH ×4 (08:18→21:21)
[2021-08-30] MEDS: DOCUSATE SODIUM 100 MG CAP PO SCH ×2 (08:18→21:21)
[2021-08-30] MEDS: FERROUS SULFATE 325 MG TAB PO SCH (08:18)
[2021-08-30] MEDS: NICOTINE 14 MG/24 HR PATCH TD SCH ×2 (09:34→20:44)
[2021-08-31] MEDS: IBUPROFEN 600 MG TAB PO PRN ×4 (04:02→19:29)
[2021-08-31] MEDS: oxyCODONE/ACETAMINOPHEN 5mg/325mg TAB PO PRN ×4 (04:02→19:29)
[2021-08-31] MEDS: METHADONE ORAL SOLN 2 MG/ML PO SCH (06:11)
--- NOTE | 2021-08-31 06:14 | Obstetrical Progress Note ---
Date of Service August 31, 2021 Assessment & Plan (1) Encounter for supervision of normal in multigravida: Plan: 26 yo ,now , POD 2 s/p LTCS at 39 weeks -Continue routine care -Vitals reviewed- HDS, afebrile -A-, GBS-, Rubella immune, no Rhogam needed as baby is Rh- -Encourage ambulation, regular diet -Pain control with ibuprofen, acetaminophen, percocet PRN -Encourage , provide script for breast pump and consult counselor -Hgb 9.2 -F/u in [address] Matias Admission and Anticipated Discharge Date Admission Date: August 29, 2021 Supervising Physician Co-Signing Physician Notes Resident Physician Supervision Note: I interviewed and examined the patient. Discussed with Dr. Salas and agree with findings and plan as documented in the note. Any exceptions or clarifications are listed here: POD#2. Abdomen is distended - she is tolerating PO without N/V. She is passing gas but has not had bowel movement - states constipation is a chronic problem with her methadone use. Will give Senokot, and also put Milk of Mag available on available orders for today. Pain is controlled. Documented By: Kacey Rebollar, DO Subjective POD 2 s/p LCTS. Patient seen and examined at bedside. Reports no acute overnight events. Ambulatingand voiding. Passing gas and had BM. Regular diet w/o N/V. Lochia small. Pt reports that she attempted , but baby was fussy and had better success with bottle feeding. Saw counselor yesterday and has had improved latching today, but still requires supplementation. Pain 4/10 with use of percocet. Review of Systems Review of Systems: Denies fevers/chills. Denies dyspnea, cough. Denies chest pain. Denies breast pain or discharge. Denies dysuria. Denies headache. Denies back pain. Physical Exam Physical Exam: General: Alert, oriented, no acute distress Cardiac: Regular rate and rhythm, normal S1, S2. No murmurs appreciated. Respiratory: Clear to auscultation b/l with good air flow entry, symmetric chest rise and fall. No wheezes or crackles. No increased work of breathing or accessory muscle use Abdomen: Soft, nontender, distended. Fundus firm and palpable at 2 cm below umbilicus. Surgical incision clean, dry and intact without erythema, warmth or drainage with bandage in place. Bowel sounds appreciated. No guarding or rebound. Skin: No rashes or lesions Extremities: Warm, dry, well-perfused with capillary refill <2s b/l. No lower extremity edema, erythema or swelling. Negative Esdras's sign b/l. Results & Data ([facility]) Vital Signs (Past 12 Hours) Vital Signs Temp Pulse Resp BP Pulse Ox 08/30/21 23:45 36.7 C 68 18 124/74 98 08/30/21 20:00 36.6 C 91 H 18 132/88 97
[2021-08-31 06:46] LABS: Hematocrit (blood only) 32.6 % (37-47); Hemoglobin 9.8 g/dL (12.0-16.0)
[2021-08-31] MEDS: FERROUS SULFATE 325 MG TAB PO SCH (07:56)
[2021-08-31] MEDS: PRENATAL VITAMIN 1 TAB PO SCH (07:56)
[2021-08-31] MEDS: SIMETHICONE 80 MG CHEW PO SCH ×4 (07:56→20:31)
[2021-08-31] MEDS: DOCUSATE SODIUM 100 MG CAP PO SCH ×2 (07:57→20:31)
[2021-08-31] MEDS ORDERED: MAGNESIUM HYDROXIDE SUSP 30 ML UDC PO PRN (08:03)
[2021-08-31] MEDS: NICOTINE 14 MG/24 HR PATCH TD SCH (09:58)
[2021-09-01] MEDS: IBUPROFEN 600 MG TAB PO PRN ×3 (01:02→16:11)
[2021-09-01] MEDS: oxyCODONE/ACETAMINOPHEN 5mg/325mg TAB PO PRN ×3 (01:03→16:10)
--- NOTE | 2021-09-01 05:46 | Obstetrical Progress Note ---
Date of Service September 01, 2021 Assessment & Plan (1) Encounter for supervision of normal in multigravida: Plan: 26 yo ,now , POD 2 s/p LTCS at 39 weeks -D/C if peds clears baby or if pt decides to go home, otherwise pt can stay as a patient until tomorrow. -Continue routine care -Vitals reviewed- HDS, afebrile -A-, GBS-, Rubella immune, no Rhogam needed as baby is Rh- -Encourage ambulation, regular diet -Pain control with ibuprofen, acetaminophen, percocet PRN -Encourage , provided script for breast pump and pt spoke to counselor -Hgb 9.8 -F/u in [address] Matias Admission and Anticipated Discharge Date Admission Date: August 29, 2021 Supervising Physician Co-Signing Physician Notes Resident Physician Supervision Note: I interviewed and examined the patient. Discussed with Dr. Salas and agree with findings and plan as documented in the note. Any exceptions or clarifications are listed here: POD3 s/p rLTCS/BTL, doing well. Pain better controlled today, bloating/constipation improved. Meeting all milestones otherwise. BPs mildly elevated yesterday afternoon, labs ordered this AM to rule out PIH. Pt may want to be d/c'd today, but not sure. If BPs remain stable, labs are normal, then could be d/c'd with BP check. If not, may need to stay another day. Breast pump rx at the office, FOB reports he will cloth picker. Documented By: Aundrea Fernandez MD Subjective POD 2 s/p LCTS. Patient seen and examined at bedside. Reports no acute overnight events. Ambulatingand voiding. Passing gas and has not had BM, has history of constipation prior to , Milk of Mag and senna added to bowel regimen yesterday w/o BM yet. Regular diet w/o N/V. Lochia small. Pt reports that she attempted , but baby was fussy and had better success with bottle feeding. Saw counselor and has had improved latchin, but still requires supplementation. Pain 4/10 with use of percocet, motrin, tylenol. Review of Systems Review of Systems: Denies fevers/chills. Denies dyspnea, cough. Denies chest pain. Denies breast pain or discharge. Denies dysuria. Denies headache. Denies back pain. Physical Exam Physical Exam: General: Alert, oriented, no acute distress Cardiac: Regular rate and rhythm, normal S1, S2. No murmurs appreciated. Respiratory: Clear to auscultation b/l with good air flow entry, symmetric chest rise and fall. No wheezes or crackles. No increased work of breathing or accessory muscle use Abdomen: Soft, nontender, mildly distended. Fundus firm and palpable at 2 cm below umbilicus. Surgical incision clean, dry and intact without erythema, warmth or drainage. Bowel sounds appreciated. No guarding or rebound. Skin: No rashes or lesions Extremities: Warm, dry, well-perfused with capillary refill <2s b/l. No lower extremity edema, erythema or swelling. Negative Esdras's sign b/l. Results & Data ([facility]) Vital Signs (Past 12 Hours) Vital Signs Temp Pulse Resp BP Pulse Ox 09/01/21 05:10 36.4 C L 66 16 133/82 98 09/01/21 00:30 36.5 C 80 18 134/80 97 08/31/21 19:25 36.9 C 73 18 145/86 H 99
[2021-09-01 07:37] LABS: Hematocrit (blood only) 29.5 % (37-47); Hemoglobin 9.1 g/dL (12.0-16.0); Mean Corpuscular Hemoglobin 25.1 pg (25-34); Mean Corpuscular Hgb Conc 30.8 g/dL (32-36); Mean Corpuscular Volume 81.3 fL (80-100); Mean Platelet Volume 11.5 fL (7.4-10.4); Platelet Count 112 K/uL (130-400); RDW Coefficient of Variation 16.1 % (11.5-14.5); RDW Standard Deviation 47.7 fL (36.4-46.3); Red Blood Count 3.63 M/uL (4.2-5.4); White Blood Count 4.85 K/uL (4.8-10.8)
[2021-09-01 08:01] LABS: Albumin Level 2.2 gm/dl (3.4-5.0); Calcium 8.3 mg/dl (8.5-10.1); Creatinine Clr Calc Pharmacy 142.4 ml/min; Est GFR (Non-African American) 120.8 ml/min
[2021-09-01 08:03] LABS: Albumin Globulin Ratio 0.6 (0.9-2); Bilirubin,Total 0.5 mg/dl (0.2-1); Globulin 3.6 gm/dl (2.5-4.0); Total Protein 5.8 gm/dl (6.4-8.2)
[2021-09-01] MEDS: DOCUSATE SODIUM 100 MG CAP PO SCH ×2 (08:03→20:18)
[2021-09-01] MEDS: SIMETHICONE 80 MG CHEW PO SCH ×4 (08:03→20:18)
[2021-09-01] MEDS: PRENATAL VITAMIN 1 TAB PO SCH (08:03)
[2021-09-01] MEDS: FERROUS SULFATE 325 MG TAB PO SCH (08:03)
[2021-09-01] MEDS: METHADONE ORAL SOLN 2 MG/ML PO SCH (08:04)
[2021-09-01] MEDS: NICOTINE 14 MG/24 HR PATCH TD SCH (09:25)
--- NOTE | 2021-09-01 17:47 | Communication Note ---
Date of Service: September 01, 2021 Patient has been anxious to leave the hospital as she is under some pressure to machine pecan picker her methadone from clinic tomorrow AM. If she does not get it from clinic tomorrow before they close for the weekend, she may be unable to obtain the necessary supply to get her through until Sunday. However her blood pressure was not in the normal range this morning. Despite being asymptomatic / feeling well today per her nurses, she has had elevated blood pressures again this evening when I asked that they be taken more frequently. I have therefore ordered labetalol 200mg PO BID to be started now in hopes that she will be well enough controlled for her to be discharged and go machine pecan picker her medicine in the morning, which I am told we cannot dispense for her through the weekend unless she is a true inpatient.
[2021-09-01] MEDS: LABETALOL HCL 200 MG TAB PO SCH (18:31)
--- NOTE | 2021-09-02 05:39 | Obstetrical Progress Note ---
Date of Service September 02, 2021 Assessment & Plan (1) Encounter for supervision of normal in multigravida: Plan: 26 yo ,now , POD 4 s/p LTCS at 39 weeks -BP 166/92 when measured by myself this morning, labetolol was started yesterday by Dr. Amanda, increase dosage per provider discretion. Pt will stay at least an additional 24 hours to monitor pressures. -BP goal is < 140/90 -Murmur auscultated today: pt reports it was there prior to . Could also just be due to state and increase flow. -Give pt's usual methadone dose as an inpatient -Continue routine care -Vitals reviewed- HDS, afebrile -A-, GBS-, Rubella immune, no Rhogam needed as baby is Rh- -Encourage ambulation, regular diet -Pain control with ibuprofen, acetaminophen, percocet PRN -Encourage , provided script for breast pump and pt spoke to counselor -Hgb 9.8 -F/u in [address] Matias Admission and Anticipated Discharge Date Admission Date: August 29, 2021 Supervising Physician Co-Signing Physician Notes Resident Physician Supervision Note: I interviewed and examined the patient. Discussed with Dr. Salas and agree with findings and plan as documented in the note. Any exceptions or clarifications are listed here: Remain inpatient for BP monitoring. About to receive second dose of Labetalol. If still not adequate control, titrate upwards Q12-24 hours to achieve goal of BP <140/90. Documented By: Angela Amanda MD, FACOG Subjective POD 4 s/p LCTS. Patient seen and examined at bedside. Reports no acute overnight events. Ambulating and voiding. Passing gas and has not had BM, has history of constipation prior to , Milk of Mag and senna added to bowel regimen 2 days ago w/o BM yet. Per pt methadone makes her constipated. Regular diet w/o N/V. Lochia small. Pt has been using breast pump and feeding baby her milk via that modality. Pain 3/10 with use of percocet, motrin, tylenol. Pt concerned that she is going to missing her methadone dosage today. States she understands if she has to stay. Review of Systems Review of Systems: Denies fevers/chills. Denies dyspnea, cough. Denies chest pain. Denies breast pain or discharge. Denies dysuria. Denies headache. Denies back pain. Physical Exam Physical Exam: General: Alert, oriented, no acute distress Cardiac: Regular rate and rhythm, normal S1, S2. 2/6 systolic murmur best auscultated at the apex. Respiratory: Clear to auscultation b/l with good air flow entry, symmetric chest rise and fall. No wheezes or crackles. No increased work of breathing or accessory muscle use Abdomen: Soft, nontender, mildly distended. Fundus firm and palpable at 2 cm below umbilicus. Surgical incision clean, dry and intact without erythema, warmth or drainage. Bowel sounds appreciated. No guarding or rebound. Skin: No rashes or lesions Extremities: Warm, dry, well-perfused with capillary refill <2s b/l. No lower extremity edema, erythema or swelling. Negative Esdras's sign b/l. Results & Data ([facility]) Vital Signs (Past 12 Hours) Vital Signs Temp Resp BP BP 09/02/21 01:07 36.8 C 18 138/78 09/01/21 20:30 145/97 H 09/01/21 18:22 152/85 H
[2021-09-02] MEDS: SIMETHICONE 80 MG CHEW PO SCH ×4 (07:35→19:54)
[2021-09-02] MEDS: IBUPROFEN 600 MG TAB PO PRN ×4 (07:35→23:30)
[2021-09-02] MEDS: FERROUS SULFATE 325 MG TAB PO SCH (07:35)
[2021-09-02] MEDS: METHADONE ORAL SOLN 2 MG/ML PO SCH (07:35)
[2021-09-02] MEDS: PRENATAL VITAMIN 1 TAB PO SCH (07:35)
[2021-09-02] MEDS: DOCUSATE SODIUM 100 MG CAP PO SCH ×2 (07:35→19:54)
[2021-09-02] MEDS: oxyCODONE/ACETAMINOPHEN 5mg/325mg TAB PO PRN ×4 (07:36→23:30)
[2021-09-02] MEDS: NICOTINE 14 MG/24 HR PATCH TD SCH (07:50)
[2021-09-02] MEDS: LABETALOL HCL 200 MG TAB PO SCH ×2 (07:51→19:54)
[2021-09-03] MEDS: oxyCODONE/ACETAMINOPHEN 5mg/325mg TAB PO PRN ×4 (04:12→17:17)
[2021-09-03] MEDS: IBUPROFEN 600 MG TAB PO PRN ×4 (04:12→17:17)
[2021-09-03] MEDS ORDERED: METHADONE HCL 10 MG TAB PO SCH (06:00)
--- NOTE | 2021-09-03 07:36 | Obstetrical Progress Note ---
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 bps are stable on current dose of labetalol, plan one wk bp check. pain meds already sent to her pharmacy by dr. stoddard. instructions reviewed. will see if pharm here can dispense her next day dose of methadone. nursing aware to look into that for patient. patient had told prior provider that can go one day without the medication--ie. not have bad withdrawal, she will not have access to her methadone provider until sunday. needs 1 wk bp check in office, then 6wk pp check. pt aware to schedule these appts. Day #:: 5 Subjective Ambulation: ambulating normally Voiding: no voiding problems Passing Gas:: Yes Diet Tolerance:: regular diet Lochia:: Small pain control good. bps good. denies russo or visual change. was kept due to need for better bp control Constitutional: + as per Subjective / HPI Physical Exam Constitutional WD/WN, vitals as above Respiratory normal respiratory effort, lungs clear to auscultation Cardiovascular Rate/Rhythm: regular rate and regular rhythm Gastrointestinal (Abdomen) Inspection/Auscultation: abdomen normal to inspection and + abdominal surgical incision (c/d/i with bruising) Percussion/Palpation: abdomen soft Fundus firm 1cm down Musculoskeletal nt calves no edema Neurologic grossly normal Psychiatric A+Ox3, euthymic affect Results & Data ([facility]) Vital Signs (Past 12 Hours) Vital Signs Temp Pulse Pulse Resp BP BP Pulse Ox 09/02/21 23:25 98.1 F 71 16 131/79 98 09/02/21 19:50 86 130/77
[2021-09-03] MEDS: NICOTINE 14 MG/24 HR PATCH TD SCH (07:48)
[2021-09-03] MEDS: FERROUS SULFATE 325 MG TAB PO SCH (07:49)
[2021-09-03] MEDS: SIMETHICONE 80 MG CHEW PO SCH (07:49)
[2021-09-03] MEDS: LABETALOL HCL 200 MG TAB PO SCH (07:49)
[2021-09-03] MEDS: PRENATAL VITAMIN 1 TAB PO SCH (07:49)
[2021-09-03] MEDS: DOCUSATE SODIUM 100 MG CAP PO SCH (10:22)
--- NOTE | 2021-09-06 11:25 | Discharge Summary (DS) ---
DATE OF ADMISSION: 08/29/2021 DATE OF DISCHARGE: 09/03/2021 PRINCIPAL DIAGNOSES: Intrauterine at 39 weeks for repeat section, bilateral tubal ligation, unwanted fertility, and multiparity. History of methadone use and dependency as well as p ositive for hepatitis C. HISTORY: The patient is a 26-year-old 4, para 2-0-2-2 white female, EDC of 08/31/2021 who pr esented at 39 weeks for repeat section, tubal ligation. This was done without complications . Initially in the period, there was difficulty controlling her pain level with oral medi cations. She also had some elevated blood pressures during that time period. Pressures normalized, b ut then began to creep up again. No other evidence of PIH through blood work or symptoms, and she was begun on labetalol 200 mg p.o. b.i.d., which then normalized her blood pressure. She was sent home at that point in good condition. She remained afebrile throughout her hospital course. She was ambul ating and voiding without difficulty on her first postop day and tolerating oral medications and regu lar diet at that time as well. She was sent home with prescriptions for Motrin 600 mg p.o. q.6 hours p.r.n. pain and Percocet 1 tablet p.o. q.6 hours p.r.n. pain. She will follow up with the methadone clinic for her ongoing methadone doses. She is to be seen in the office in 1 week for a blood press ure check to make sure that her blood pressure is still being controlled well on the current labetalo l dose. She is to call for a temperature of 101 degrees or higher, heavy vaginal bleeding, burning w ith urination, increased redness, drainage or pain from her incision, calf tenderness, persistent hea daches, visual changes, epigastric pain, shortness of breath or any other concerns prior to her 1 wee k visit. Labs; on admission, hemoglobin was 10.9, hematocrit 35.2. First postop day, hemoglobin 9.2, hematocr it of 29.5. Second postop day, hemoglobin 9.8, hematocrit 32.6. Third postoperative day, hemoglobin 9.1, hematocrit of 29.5, platelets were 112,000 and that was up from 102,000 on her first postop day. PIH labs on 09/01 were within normal limits. Urine drug screen on admission was positive only for methadone. Job ID: [id number]
== END 2021-09-03 17:15 | disposition home or self-care (01) | DRG 784 ==
LOC: 4S1 05:41 → EDSTATUS 07:30 → 4S2 12:30
PROC: M.PPTLD (2021-08-29 07:30)

== ENCOUNTER 2021-09-10 09:26 | Observation (INO) ==
[2021-09-10] MEDS ORDERED: PROMETHAZINE 12.5 MG/50.5 ML BAG IV STA (09:50)
[2021-09-10] MEDS ORDERED: KETOROLAC TROMETHAMINE 15 MG/ML VIAL IV STA (09:50)
[2021-09-10 10:40] LABS: Basophils # (auto) 0.01 K/uL (0-0.2); Basophils % (auto) 0.1 %; Eosinophils # (auto) 0.01 K/uL (0-0.5); Eosinophils % (auto) 0.1 %; Hematocrit (blood only) 33.8 % (37-47); Hemoglobin 10.2 g/dL (12.0-16.0); Immature Granulocytes # (auto) 0.01 K/uL (0.00-0.02); Immature Granulocytes % (auto) 0.1 %; Lymphocytes # (auto) 0.93 K/uL (1.2-3.4); Lymphocytes % (auto) 13.6 %; Mean Corpuscular Hemoglobin 24.6 pg (25-34); Mean Corpuscular Hgb Conc 30.2 g/dL (32-36); Mean Corpuscular Volume 81.6 fL (80-100); Mean Platelet Volume 10.9 fL (7.4-10.4); Monocytes # (auto) 0.33 K/uL (0.11-0.59); Monocytes % (auto) 4.8 %; Neutrophils # (auto) 5.55 K/uL (1.4-6.5); Neutrophils % (auto) 81.3 %; Platelet Count 214 K/uL (130-400); RDW Coefficient of Variation 17.5 % (11.5-14.5); RDW Standard Deviation 51.9 fL (36.4-46.3); Red Blood Count 4.14 M/uL (4.2-5.4); White Blood Count 6.84 K/uL (4.8-10.8)
[2021-09-10 10:44] LABS: Appearance Urine Cloudy (Clear); Bilirubin Urine Negative (Negative); Blood Urine 3+ (Negative); Color Urine Dark Yellow; Epithelial Cell Urine Auto >30 /lpf (0-5); Glucose Urine UA Negative (Negative); Ketones Urine 1+ (Negative); Leukocyte Esterase Urine 1+ (Negative); Nitrite Urine Negative (Negative); Protein Urine Negative (Negative); Specific Gravity Urine 1.026 (1.000-1.030); Urobilinogen Urine Negative (Negative)
--- NOTE | 2021-09-10 10:50 | Emergency Department Note ---
Impression & Plan Postoperative abscess, Lower abdominal pain, Nausea, Status post section, Retained products of conception ED Provider Note INFORMANT: Patient ED PROVIDER(S): Jose Loaiza MD CHIEF COMPLAINT: Abdominal pain PLAN: Disposition: Admitted Condition: Good Outpatient prescription management: none Referral: None MEDICAL DECISION MAKING: Patient presented because of abdominal pain. She was postop from . She was given IV Toradol and IV Phenergan. She did feel better with this. Blood work was unremarkable. Urinalysis does raise some concern for infection. The patient underwent CT imaging and there was concerns for a developing abscess as well as possible retained products. Consultation was placed with Dr. Fernandez of [facility]. She asked for an ultrasound to be ordered. The patient was evaluated in the emergency department and she felt admission was necessary. We discussed the patient's treatment With the ED pharmacist. IV clindamycin, cefepime, and vancomycin chosen. First dose was given in ER. Patient was admitted for further management. Triage Nursing notes reviewed and agree them. Vital Signs: reviewed and remarkable for no significant abnormalities Differential diagnosis: Complication of recent , endometritis, appendicitis, ovarian cyst, ovarian torsion, ectopic , TOA, PID, infections, diverticulitis, UTI, obstruction, mesenteric ischemia, aortic pathology, inflammatory bowel disease, renal colic, PUD, pancreatitis, biliary pathology, hernia, volvulus, constipation, as well as other pathologies. Diagnostics interpreted by me: ECG: none Cardiac Monitoring: Cardiac monitoring ordered by me: The patient was placed on continuous cardiac monitoring and observed. It revealed a normal sinus rhythm at 89 beats per minute without ectopy or evidence of dysrhythmia. Imaging studies: CT imaging as noted above. Ultrasound imaging raise concerns for retained products. HPI: The patient is a 26 year old female who presents to the Emergency Room with complaints of lower abdominal pain. This started yesterday and is worsening. The patient also notes the following associated symptoms, abdominal bloating, dysuria. The patient has found no relieving factors. Current pain is rated as 7/10. Patient had a on August [address] Avila. Patient is breast-feeding. Patient currently taking methadone. Denies any incisional problems. Pt denies LOC, headache, fevers, chills, diaphoresis, visual changes, neck pain, chest pain, breathing difficulties, nausea, vomiting, back pain, melena, hematochezia, numbness, weakness, lymphadenopathy, rash, or other complaints. ROS: See above HPI for pertinent positives & negatives. A total of 10 systems reviewed and were otherwise negative. PAST MEDICAL HISTORY:See Below , hep C PAST SURGICAL HISTORY:See Below, x2 FAMILY HISTORY:See Below SOCIAL HISTORY:See Below, smoker HOME MEDICATIONS:See Below ALLERGIES:See Below VITALS:See Below PHYSICAL EXAMINATION: GENERAL: Awake, alert, well-appearing, in no distress HENT: Normocephalic, atraumatic. Oropharynx unremarkable. EYES: Normal conjunctiva. Sclera non-icteric. NECK: Inspection normal. Non-tender. Supple. No nuchal rigidity. FROM. No masses. RESPIRATORY: Clear to auscultation. No wheezes. No rales. Normal respiratory effort. CARDIAC: Normal rate. Normal rhythm. No murmurs. No rubs. Extremities warm and well perfused. Pulses equal. No JVD. GI: Soft, mildly-distended. Bilateral lower quadrant tenderness to palpation. No rebound or guarding. No masses. Incision from the appears clean, dry, intact without signs of redness or warmth. RECTAL: Deferred. MUSCULOSKELETAL: Atraumatic. Chest examination reveals no tenderness. The back is symmetrical on inspection without obvious abnormality. There is no CVA tenderness to palpation. No joint edema. LOWER EXTREMITIES: Calves are equal size bilaterally and non-tender. No edema. No discoloration. NEURO: Normal sensorium. No sensory or motor deficits noted. SKIN: No rash or jaundice noted. Jose Loaiza MD Past Med/Surg History Medical History Anxiety and depression Cardiac murmur MILD>ONLY HEARD 1X (NO CARDS) No murmur noted per 03/2021 ER visit GERD (gastroesophageal reflux disease) DURING Hepatitis C, chronic Low grade squamous intraepithelial lesion (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 Maternal drug dependence, antepartum Opiate addiction REASON FOR METHADONE>HX HEROIN (LAST USED 4 YEARS) Short interval between pregnancies affecting , antepartum Tobacco smoking affecting in first trimester Surgical History History of section X 1 [place] teeth removed Family History Grandfather (Maternal) Family hx of colon cancer Grandmother (Maternal) Breast cancer Grandmother (Paternal) Kidney malignancy Grandfather (Paternal) Myocardial infarction Stroke Other No family history of adverse response to anesthesia Social History Smoking Status: Current every day smoker Tobacco Type: Cigarettes Cigarettes Per Day: 3; Second Hand Exposure: No; Hx Alcohol Use: No Hx Substance Use: Yes Last Used Substance Other:: LAST USED A COUPLE MONTHS Substance Use Type Other:: Heroin last used 4 years ago Preferred Language: Polish Communication Ability: Effective Visual Impairment: No Limitations Hearing Ability: Normal 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 Required: No Beliefs That Will Affect Care: None marital status: Single marital status details: Chema Coloned [phone] Current Living Situation: Family and Significant Other Current Living Situation Comment: Boyfriend and 2 daughters age 3 and 2 current occupational status: unemployed 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 Feels Safe at Home: Yes Assistive Devices: None Allergies Allergies Allergy/AdvReac Type Severity Reaction Status Date / Time amoxicillin [From Augmentin] Allergy Mild Rash Verified 09/10/21 10:04 clavulanic acid Allergy Mild Rash Verified 09/10/21 10:04 [From Augmentin] Home Meds Home Medications Medication Instructions Recorded Confirmed methadone 10 mg/mL oral concentrate 174 mg PO QAM 08/19/21 09/10/21 Previous Rx's Medication Instructions Recorded prenat.vits,daniella,[id number] 1 tab PO DAILY #90 tab 03/23/21 breast pump #1 ea 08/31/21 oxycodone-acetaminophen 5 mg-325 1 - 2 tab PO Q4H PRN #20 tab 09/01/21 mg tablet (Percocet) labetalol 200 mg tablet 200 mg PO BID #60 tab 09/03/21 Results & Data (ED) Vital Signs Vital Signs - 24 hr 09/10/21 09:36 Temperature 37.0 C Temperature Source Skin Pulse Rate 89 Pulse Rhythm Regular Pulse Strength Normal Respiratory Rate 20 Respiratory Effort / Characteristics Non-Labored Spontaneous Respiratory Depth Normal Respiratory Pattern Regular Blood Pressure 130/70 Blood Pressure Mean 90 Pulse Oximetry 100 Oxygen Delivery Method Room Air Sepsis Recent Fever Within 48 Hours No Sepsis New/Unexplained Change in Mental Status N/A Sepsis Action Taken by Nursing No Action Required Laboratory Data Result diagrams: 09/10/21 10:29 09/10/21 10:29 Lab Results 09/10/21 09/10/21 09/10/21 Range/Units 10:29 10:29 10:31 WBC 6.84 (4.8-10.8) K/uL RBC 4.14 L (4.2-5.4) M/uL Hgb 10.2 L (12.0-16.0) g/dL Hct 33.8 L (37-47) % MCV 81.6 (80-100) fL MCH 24.6 L (25-34) pg MCHC 30.2 L (32-36) g/dL RDW Std Deviation 51.9 H (36.4-46.3) fL RDW Coeff of Nikole 17.5 H (11.5-14.5) % Plt Count 214 (130-400) K/uL MPV 10.9 H (7.4-10.4) fL Immature Gran % (Auto) 0.1 % Neut % (Auto) 81.3 % Lymph % (Auto) 13.6 % [place] % (Auto) 4.8 % Eos % (Auto) 0.1 % Baso % (Auto) 0.1 % Neut # (Auto) 5.55 (1.4-6.5) K/uL Lymph # (Auto) 0.93 L (1.2-3.4) K/uL [place] # (Auto) 0.33 (0.11-0.59) K/uL Eos # (Auto) 0.01 (0-0.5) K/uL Baso # (Auto) 0.01 (0-0.2) K/uL Immature Gran # (Auto) 0.01 (0.00-0.02) K/uL Sodium 137 (136-145) mmol/L Potassium 3.8 (3.5-5.1) mmol/L Chloride 107 (98-107) mmol/L Carbon Dioxide 23 (21-32) mmol/L Anion Gap 7.0 (3-11) BUN 14 (7-18) mg/dl Creatinine 0.67 (0.6-1.2) mg/dl Est Cr Clr Drug Dosing 126.2 ml/min Est GFR ( Amer) 138.6 ml/min Est GFR (Non-Af Amer) 119.6 ml/min BUN/Creatinine Ratio 21.5 H (10-20) Glucose 117 H (70-99) mg/dl Calcium 8.9 (8.5-10.1) mg/dl Total Bilirubin 0.3 (0.2-1) mg/dl AST 31 (15-37) U/L ALT 48 (12-78) Alkaline Phosphatase 104 (45-117) U/L Total Protein 7.2 (6.4-8.2) gm/dl Albumin 2.7 L (3.4-5.0) gm/dl Globulin 4.5 H (2.5-4.0) gm/dl Albumin/Globulin Ratio 0.6 L (0.9-2) Lipase 61 L (73-393) U/L Urine Color Dark Yellow Urine Appearance Cloudy A (Clear) Urine pH 5.0 (4.5-7.5) Ur Specific [place] 1.026 (1.000-1.030) Urine Protein Negative (Negative) Urine Glucose (UA) Negative (Negative) Urine Ketones 1+ H (Negative) Urine Blood 3+ H (Negative) Urine Nitrite Negative (Negative) Urine Bilirubin Negative (Negative) Urine Urobilinogen Negative (Negative) Ur Leukocyte Esterase 1+ H (Negative) Urine WBC (Auto) 5-10 H (0-5) /hpf Urine RBC (Auto) 5-10 H (0-4) /hpf U Hyaline Cast (Auto) 1-5 (0-5) /lpf U Epithel Cells (Auto) >30 H (0-5) /lpf Urine Bacteria (Auto) 1+ H (Negative) Ur Renal Epithelial Cell Not Reportable Urine Crystals Not Reportable Calcium Oxalate Crystal Present A (None Prsent) Urine Mucus Present A (None Prsent) Administered Medications Discontinued Medications Promethazine HCl (Phenergan) 12.5 mg in 50.5 mls @ 202 mls/hr IV NOW STA Stop: 09/10/21 10:04 Last Infusion: 09/10/21 11:23 Dose: 0 mls/hr Documented by: [id number] Admin: 09/10/21 10:40 Dose: 202 mls/hr Documented by: [id number] Cefepime HCl (Maxipime) 20 mls @ 5 mls/min IV NOW STA Stop: 09/10/21 14:44 Last Admin: 09/10/21 15:01 Dose: 5 mls/min Documented by: [id number] Ioversol (Optiray 320 100ml) 95 ml IV ONCE ONE Stop: 09/10/21 11:20 Last Admin: 09/10/21 11:19 Dose: 95 ml Documented by: [id number] Ketorolac Tromethamine (Ketorolac Tromethamine 15 Mg/Ml Vial) 15 mg IV NOW STA Stop: 09/10/21 09:51 Last Admin: 09/10/21 10:40 Dose: 15 mg Documented by: [id number] Imaging Data Radiologist's Impression: Abdomen/Pelvis CT 09/10/21 09:50 CT abd pelvis IV con only CLINICAL HISTORY: lower abd pain, recent csection. TECHNIQUE: Helical axial images of the abdomen and pelvis were obtained and displayed. Automated dose lowering techniques and/or adjustment according to patient size were utilized for this exam. This exam was performed with intravenous contrast. COMPARISON: None available at the time of this dictation. FINDINGS: Lower chest: Bibasilar atelectasis versus scarring is seen. Liver: Unremarkable. No focal lesions are seen. Gallbladder and biliary tree: No calcified gallstones. Normal caliber wall. Mild prominence of the intrahepatic bile ducts is seen. This may be physiologic due to recent . Pancreas: Unremarkable, no focal lesions. Spleen: Splenule is incidentally noted. The spleen is prominent in size measuring 15 cm in craniocaudal dimension. Adrenals: Unremarkable. Kidneys and ureters: Unremarkable. Bladder: Unremarkable. Reproductive organs: The uterus is enlarged. There is a soft tissue mass in the lower segment of the uterus. Bowel: Unremarkable. Lymph nodes Retroperitoneal: Unremarkable. Mesenteric: Unremarkable. Pelvic: Subcentimeter lymph nodes are noted. Peritoneum: A small amount of free fluid is seen. Vessels: Unremarkable. Abdominal wall: There is a rim-enhancing fluid collection in the anterior musculature measuring approximately 34 x 14 mm. Bones: Unremarkable. IMPRESSION: 1. Rim-enhancing fluid collection in the anterior abdominal musculature concerning for developing abscess. 2. Soft tissue density in the lower uterine segment which may represent retained products of conception. 3. A small amount of free fluid in the abdomen is nonspecific. ACT 112: Negative or not required by law. Electronically signed by: Juan Paige M.D. 09/10/2021 11:34 AM Pelvis Ultrasound 09/10/21 12:51 US pelvic complete CLINICAL HISTORY: eval for retained products TECHNIQUE: Real-time sonographic images of the pelvic contents were obtained with transabdominal technique.. Comparison: Comparison is made to CT abdomen pelvis 04/03/2022 FINDINGS: The uterus measures 11.4 x 7.3 x 10.9 cm. The endometrial cavity echo stripe measures 3.3 cm in thickness. There is a complex fluid-filled debris area measuring 3.4 x 2.2 x 3.2 cm. No Doppler flow is seen within this finding. The right ovary was not visualized. The left ovary measures 2.9 x 1.6 x 2.8 cm. Follicles and flow are seen in the left ovary. There was some fluid in the cul-de-sac. There is a heterogeneous area seen superficial to the uterus measuring approximately 10.3 x 3.5 x 12.4 cm. Minimal color flow IMPRESSION: 1. Heterogeneous complex solid and fluid region of debris in the uterus compatible with avascular retained products of conception. 2. Complex intramuscular lesion likely represents hematoma or developing phle gmon. ACT 112: Negative or not required by law. Electronically signed by: Juan Paige M.D. 09/10/2021 2:56 PM Discharge Plan Visit Data Chief Complaint: Abdominal Pain Stated Complaint: C SECTION ON , SEVERE ABDOMINAL PAIN ED Provider: Jose Loaiza Discharge Problem: Postoperative abscess, Lower abdominal pain, Nausea, Status post section, Retained products of conception Forms Stand Alone Forms: [facility] Prescriptions Prescriptions: No Action prenat.vits,daniella,[id number] Tablet 1 tab PO DAILY Qty: 90 RF: 3 (DME) breast pump Device See Rx Instructions .MEDSUPPLY Qty: 1 RF: 0 methadone 10 mg/mL Concentrate 174 mg PO QAM RF: 0 oxycodone-acetaminophen [Percocet] 5-325 mg Tablet 1 - 2 tab PO Q4H PRN (Reason: pain) Qty: 20 RF: 0 labetalol 200 mg Tablet 200 mg PO BID Qty: 60 RF: 1 Referrals Referrals: PCP,NO [Primary Care Provider] -
[2021-09-10 10:51] LABS: Potassium 3.8 mmol/L (3.5-5.1)
[2021-09-10 10:53] LABS: Calcium Oxalate Crystals Urine Present (None Prsent); Mucus Urine Present (None Prsent)
[2021-09-10 10:55] LABS: Bacteria Urine Automated 1+ (Negative)
[2021-09-10 10:56] LABS: BUN Creatinine Ratio 21.5 (10-20); Calcium 8.9 mg/dl (8.5-10.1); Creatinine Clr Calc Pharmacy 126.2 ml/min; Est GFR (African American) 138.6 ml/min; Est GFR (Non-African American) 119.6 ml/min
[2021-09-10 10:59] LABS: Albumin Globulin Ratio 0.6 (0.9-2); Albumin Level 2.7 gm/dl (3.4-5.0); Bilirubin,Total 0.3 mg/dl (0.2-1); Globulin 4.5 gm/dl (2.5-4.0); Total Protein 7.2 gm/dl (6.4-8.2)
[2021-09-10] MEDS ORDERED: OPTIRAY 320 100ml IV ONE (11:19)
--- NOTE | 2021-09-10 11:35 | CT Scan Report ---
CT abd pelvis IV con only CLINICAL HISTORY: lower abd pain, recent csection. TECHNIQUE: Helical axial images of the abdomen and pelvis were obtained and displayed. Automated dose lowering techniques and/or adjustment according to patient size were utilized for this exam. This e xam was performed with intravenous contrast. COMPARISON: None available at the time of this dictation. FINDINGS: Lower chest: Bibasilar atelectasis versus scarring is seen. Liver: Unremarkable. No focal lesions are seen. Gallbladder and biliary tree: No calcified gallstones. Normal caliber wall. Mild prominence of the in trahepatic bile ducts is seen. This may be physiologic due to recent . Pancreas: Unremarkable, no focal lesions. Spleen: Splenule is incidentally noted. The spleen is prominent in size measuring 15 cm in craniocaud al dimension. Adrenals: Unremarkable. Kidneys and ureters: Unremarkable. Bladder: Unremarkable. Reproductive organs: The uterus is enlarged. There is a soft tissue mass in the lower segment of the uterus. Bowel: Unremarkable. Lymph nodes Retroperitoneal: Unremarkable. Mesenteric: Unremarkable. Pelvic: Subcentimeter lymph nodes are noted. Peritoneum: A small amount of free fluid is seen. Vessels: Unremarkable. Abdominal wall: There is a rim-enhancing fluid collection in the anterior musculature measuring appro ximately 34 x 14 mm. Bones: Unremarkable. IMPRESSION: 1. Rim-enhancing fluid collection in the anterior abdominal musculature concerning for developing ab scess. 2. Soft tissue density in the lower uterine segment which may represent retained products of concept ion. 3. A small amount of free fluid in the abdomen is nonspecific. ACT 112: Negative or not required by law. Electronically signed by: Juan Paige M.D. 09/10/2021 11:34 AM
[2021-09-10] MEDS ORDERED: CLINDAMYCIN 600 MG in DEXTROSE 5% 50 ML IV STA (14:41)
[2021-09-10] MEDS ORDERED: CEFEPIME 20 ML IV STA (14:41)
[2021-09-10] MEDS ORDERED: VANCOMYCIN HCL 1,500 MG in SODIUM CHLORIDE 0.9% 500 ML IV STA (14:43)
--- NOTE | 2021-09-10 14:57 | Ultrasound Report ---
US pelvic complete CLINICAL HISTORY: eval for retained products TECHNIQUE: Real-time sonographic images of the pelvic contents were obtained with transabdominal tech nique.. Comparison: Comparison is made to CT abdomen pelvis 04/03/2022 FINDINGS: The uterus measures 11.4 x 7.3 x 10.9 cm. The endometrial cavity echo stripe measures 3.3 cm in thick ness. There is a complex fluid-filled debris area measuring 3.4 x 2.2 x 3.2 cm. No Doppler flow is se en within this finding. The right ovary was not visualized. The left ovary measures 2.9 x 1.6 x 2.8 cm. Follicles and flow ar e seen in the left ovary. There was some fluid in the cul-de-sac. There is a heterogeneous area seen superficial to the uterus measuring approximately 10.3 x 3.5 x 12.4 cm. Minimal color flow IMPRESSION: 1. Heterogeneous complex solid and fluid region of debris in the uterus compatible with avascular re tained products of conception. 2. Complex intramuscular lesion likely represents hematoma or developing phlegmon. ACT 112: Negative or not required by law. Electronically signed by: Juan Paige M.D. 09/10/2021 2:56 PM
[2021-09-10] MEDS ORDERED: oxyCODONE HCL IR 5 MG TAB (IMMEDIATE RELEASE) PO PRN (15:00)
[2021-09-10] MEDS ORDERED: VANCOMYCIN CONSULT ACTIVE PRN (15:06)
--- NOTE | 2021-09-10 15:10 | History & Physical Report ---
Date of Service September 10, 2021 Assessment & Plan (1) Postoperative abscess: Plan: -Pt's history, labs and imaging were reviewed with the patient. Reassuring that she is afebrile and w/o white count currently. She does have constipation issues at baseline but reports this is no worse than usual. Location of abscess on CT seems c/w area that pt is endorsing pain at as rest of abdomen does not seem similarly painful. I think with pain that she is having with the abscess, would rec observation for IV antibiotics and pain management at this time. Discussed w/ ER pharmacist and will plan for empiric coverage w/ vanc/cefepime/clinda, pt has had keflex in the past with hx of augmention allergy. As stable, will plan for 24 hrs IV antibiotics first and re-assess. -US was suggestive of avascular retained POCs however pt is endorsing normal amount of lochia at this time and h/h is improved from discharge. Given timing of delivery, I also think is possible that it is placental site involution but as she is stable from bleeding standpoint, I think will monitor for now given risk of perforation so close to delivery. If remains stable, will plan for repeat US to re-assess outpt History of Present Illness Chief Complaint: Abdominal pain Primary Care Provider: NO PCP 26 y/o w/ hx Hep C and on methadone who is 12 days s/p scheduled rLTCS/BTL on 08/29 presented to ER today due to significant abdominal pain. PP course was complicated by elevated BPs with otherwise normal workup and was started on labetalol 200mg BID. She reports she has continued to have routine pp course at home other than nightly episodes of 20min of pain that resolve with pain medication. Last evening began having worsening of pain in her abdomen, above her incision. Had BM without relief and notes that it persisted despite pain meds at home, did take methadone as scheduled as well. On presentation to ER, normal vitals and bloodwork obtained. CT scan was obtained which demonstrated a 3.5cm rim enhancing fluid collection in anterior musculature concerning for developing abscess. A soft tissue density in the MARTHA also was concerning for retained POC and subsequent US showed ?avascular retained POCs. On my exam, pt notes that she has been tolerating PO, appropriate pp lochia without increased bleeding. Has had some pain with urination as well. Having regular BMs for her, has difficulty with constipation due to methadone but this is stable. Past [employer] Hx: Hx CS x 2, w/ BTL Notes hx HPV Allergies Allergy/AdvReac Type Severity Reaction Status Date / Time amoxicillin [From Augmentin] Allergy Mild Rash Verified 09/10/21 10:04 clavulanic acid Allergy Mild Rash Verified 09/10/21 10:04 [From Augmentin] Home Medications Medication Instructions Recorded Confirmed Type prenat.vits,daniella,wtd-[id number] 1 tab PO DAILY #90 tab 03/23/21 09/10/21 Rx methadone 10 mg/mL oral concentrate 174 mg PO QAM 08/19/21 09/10/21 History breast pump #1 ea 08/31/21 09/10/21 Rx oxycodone-acetaminophen 5 mg-325 1 - 2 tab PO Q4H PRN #20 tab 09/01/21 09/10/21 Rx mg tablet (Percocet) labetalol 200 mg tablet 200 mg PO BID #60 tab 09/03/21 09/10/21 Rx Patient History Medical History (Updated 09/10/21 @ 15:07 by Jose Loaiza MD) Anxiety and depression Cardiac murmur MILD>ONLY HEARD 1X (NO CARDS) No murmur noted per 03/2021 ER visit GERD (gastroesophageal reflux disease) DURING Hepatitis C, chronic Low grade squamous intraepithelial lesion (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 Maternal drug dependence, antepartum Opiate addiction REASON FOR METHADONE>HX HEROIN (LAST USED 4 YEARS) Short interval between pregnancies affecting , antepartum Tobacco smoking affecting in first trimester Surgical History (Updated 09/10/21 @ 15:36 by Aundrea Fernandez MD) History of section X 2 + BTL [place] teeth removed Family History Grandfather (Maternal) Family hx of colon cancer Grandmother (Maternal) Breast cancer Grandmother (Paternal) Kidney malignancy Grandfather (Paternal) Myocardial infarction Stroke Other No family history of adverse response to anesthesia Social History Smoking Status: Current every day smoker Tobacco Type: Cigarettes Cigarettes Per Day: 3; Second Hand Exposure: No; Hx Alcohol Use: No Hx Substance Use: Yes Last Used Substance Other:: LAST USED A COUPLE MONTHS Substance Use Type Other:: Heroin last used 4 years ago Preferred Language: Lebanese Communication Ability: Effective Visual Impairment: No Limitations Hearing Ability: Normal Jewish History Professor Required: No Beliefs That Will Affect Care: None marital status: Single marital status details: Chema Arvizu (28) [phone] Current Living Situation: Family and Significant Other Current Living Situation Comment: Boyfriend and 2 daughters age 3 and 2 current occupational status: unemployed 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 Feels Safe at Home: Yes Assistive Devices: None Review of Systems Neg except as noted in HPI Physical Exam Constitutional: WD/WN, vitals as above Respiratory: normal respiratory effort; no respiratory distress and no labored breathing Gastrointestinal (Abdomen): Inspection/Auscultation: abdomen normal to inspection, + abdomen distended (mildly) and + abdominal surgical scar (healing well, c/d/i w/o s/s infection) Percussion/Palpation: + abdomen tender (mod TTP in midline, b/w umbilicus and incision) and abdomen soft; no guarding, abdomen not rigid and no abdominal mass Results & Data ([facility]) Vital Signs (Past 12 Hours) Vital Signs Temp Pulse Resp BP Pulse Ox 09/10/21 09:36 98.6 F 89 20 130/70 100 Laboratory Results 09/10/21 09/10/21 09/10/21 Range/Units 10:31 10:29 10:29 WBC 6.84 (4.8-10.8) K/uL RBC 4.14 L (4.2-5.4) M/uL Hgb 10.2 L (12.0-16.0) g/dL Hct 33.8 L (37-47) % MCV 81.6 (80-100) fL MCH 24.6 L (25-34) pg MCHC 30.2 L (32-36) g/dL RDW Std Deviation 51.9 H (36.4-46.3) fL RDW Coeff of Nikole 17.5 H (11.5-14.5) % Plt Count 214 (130-400) K/uL MPV 10.9 H (7.4-10.4) fL Immature Gran % (Auto) 0.1 % Neut % (Auto) 81.3 % Lymph % (Auto) 13.6 % [place] % (Auto) 4.8 % Eos % (Auto) 0.1 % Baso % (Auto) 0.1 % Neut # (Auto) 5.55 (1.4-6.5) K/uL Lymph # (Auto) 0.93 L (1.2-3.4) K/uL [place] # (Auto) 0.33 (0.11-0.59) K/uL Eos # (Auto) 0.01 (0-0.5) K/uL Baso # (Auto) 0.01 (0-0.2) K/uL Immature Gran # (Auto) 0.01 (0.00-0.02) K/uL Sodium 137 (136-145) mmol/L Potassium 3.8 (3.5-5.1) mmol/L Chloride 107 (98-107) mmol/L Carbon Dioxide 23 (21-32) mmol/L Anion Gap 7.0 (3-11) BUN 14 (7-18) mg/dl Creatinine 0.67 (0.6-1.2) mg/dl Est Cr Clr Drug Dosing 126.2 ml/min Est GFR ( Amer) 138.6 ml/min Est GFR (Non-Af Amer) 119.6 ml/min BUN/Creatinine Ratio 21.5 H (10-20) Glucose 117 H (70-99) mg/dl Calcium 8.9 (8.5-10.1) mg/dl Total Bilirubin 0.3 (0.2-1) mg/dl AST 31 (15-37) U/L ALT 48 (12-78) Alkaline Phosphatase 104 (45-117) U/L Total Protein 7.2 (6.4-8.2) gm/dl Albumin 2.7 L (3.4-5.0) gm/dl Globulin 4.5 H (2.5-4.0) gm/dl Albumin/Globulin Ratio 0.6 L (0.9-2) Lipase 61 L (73-393) U/L Urine Color Dark Yellow Urine Appearance Cloudy A (Clear) Urine pH 5.0 (4.5-7.5) Ur Specific [place] 1.026 (1.000-1.030) Urine Protein Negative (Negative) Urine Glucose (UA) Negative (Negative) Urine Ketones 1+ H (Negative) Urine Blood 3+ H (Negative) Urine Nitrite Negative (Negative) Urine Bilirubin Negative (Negative) Urine Urobilinogen Negative (Negative) Ur Leukocyte Esterase 1+ H (Negative) Urine WBC (Auto) 5-10 H (0-5) /hpf Urine RBC (Auto) 5-10 H (0-4) /hpf U Hyaline Cast (Auto) 1-5 (0-5) /lpf U Epithel Cells (Auto) >30 H (0-5) /lpf Urine Bacteria (Auto) 1+ H (Negative) Ur Renal Epithelial Cell Not Reportable Urine Crystals Not Reportable Calcium Oxalate Crystal Present A (None Prsent) Urine Mucus Present A (None Prsent) Diagnostic Findings CT FINDINGS: Lower chest: Bibasilar atelectasis versus scarring is seen. Liver: Unremarkable. No focal lesions are seen. Gallbladder and biliary tree: No calcified gallstones. Normal caliber wall. Mild prominence of the intrahepatic bile ducts is seen. This may be physiologic due to recent . Pancreas: Unremarkable, no focal lesions. Spleen: Splenule is incidentally noted. The spleen is prominent in size measuring 15 cm in craniocaudal dimension. Adrenals: Unremarkable. Kidneys and ureters: Unremarkable. Bladder: Unremarkable. Reproductive organs: The uterus is enlarged. There is a soft tissue mass in the lower segment of the uterus. Bowel: Unremarkable. Lymph nodes Retroperitoneal: Unremarkable. Mesenteric: Unremarkable. Pelvic: Subcentimeter lymph nodes are noted. Peritoneum: A small amount of free fluid is seen. Vessels: Unremarkable. Abdominal wall: There is a rim-enhancing fluid collection in the anterior musculature measuring approximately 34 x 14 mm. Bones: Unremarkable. IMPRESSION: 1. Rim-enhancing fluid collection in the anterior abdominal musculature concerning for developing abscess. 2. Soft tissue density in the lower uterine segment which may represent retained products of conception. 3. A small amount of free fluid in the abdomen is nonspecific. US IMPRESSION: 1. Heterogeneous complex solid and fluid region of debris in the uterus compatible with avascular retained products of conception. 2. Complex intramuscular lesion likely represents hematoma or developing phlegmon. Coding Level of Care Code 42948 Office/OBS Consult Lvl 4 Diagnoses Postoperative abscess T81.49XA
[2021-09-10] MEDS: ACETAMINOPHEN 500 MG TAB PO SCH ×2 (15:15→21:41)
--- NOTE | 2021-09-10 15:57 | Pharmacy Report ---
Pharmacy Vanc AUC Short Note - Date of Service September 10, 2021 - Assessment & Plan Assessment 26 year old F receiving IV Vancomycin, Cefepime, and Clindamycin for treatment of developing abscess of uterus and retained products of conception, s/p section 08/29/21. Urine culture pending. Afebrile, WBC normal. Plan Vancomycin * AUC/DOTTIE is the preferred PK/PD target for vancomycin * AUC guided dosing is effective and associated with decreased risk of neph rotoxicity compared to traditional trough targets * Vancomycin 1500mg IV x 1 dose now, then Vancomycin 1250mg IV Q12H * This dose is predicted to achieve target AUC/DOTTIE of 400-600 mg/L.hr and may be associated with a 8 % risk of nephrotoxicity * Trough level ordered for: 09/12/21 Cefepime 2g IV Q8H Clindamycin 600mg IV Q8H Pharmacy will continue to follow and will adjust dose/frequency as necessary. Thank you.
[2021-09-10] MEDS: IBUPROFEN 600 MG TAB PO SCH (16:30)
[2021-09-10] MEDS: LABETALOL HCL 200 MG TAB PO SCH (21:41)
[2021-09-10] MEDS: CLINDAMYCIN 600 MG in DEXTROSE 5% 50 ML IV SCH (23:13)
[2021-09-10] MEDS: CEFEPIME 2,000 MG in SYRINGE 0 ML IV SCH (23:13)
[2021-09-10] MEDS: LACTATED RINGER'S 1,000 ML IV SCH (23:13)
[2021-09-11] MEDS: IBUPROFEN 600 MG TAB PO SCH ×4 (00:24→18:56)
[2021-09-11] MEDS ORDERED: VANCOMYCIN HCL 1,250 MG in SODIUM CHLORIDE 0.9% 500 ML IV SCH (04:00)
[2021-09-11] MEDS ORDERED: VANCOMYCIN HCL 1,250 MG in SODIUM CHLORIDE 0.9% 250 ML IV SCH (04:00)
[2021-09-11] MEDS: ACETAMINOPHEN 500 MG TAB PO SCH ×3 (06:10→22:28)
[2021-09-11 07:57] LABS: Basophils # (auto) 0.01 K/uL (0-0.2); Basophils % (auto) 0.2 %; Eosinophils # (auto) 0.02 K/uL (0-0.5); Eosinophils % (auto) 0.4 %; Hematocrit (blood only) 32.7 % (37-47); Hemoglobin 9.8 g/dL (12.0-16.0); Immature Granulocytes # (auto) 0.01 K/uL (0.00-0.02); Immature Granulocytes % (auto) 0.2 %; Lymphocytes # (auto) 0.84 K/uL (1.2-3.4); Lymphocytes % (auto) 14.9 %; Mean Corpuscular Hemoglobin 24.6 pg (25-34); Mean Corpuscular Volume 82.2 fL (80-100); Mean Platelet Volume 10.4 fL (7.4-10.4); Monocytes % (auto) 7.1 %; Neutrophils # (auto) 4.35 K/uL (1.4-6.5); Neutrophils % (auto) 77.2 %; Platelet Count 178 K/uL (130-400); RDW Coefficient of Variation 17.8 % (11.5-14.5); RDW Standard Deviation 52.9 fL (36.4-46.3); Red Blood Count 3.98 M/uL (4.2-5.4); White Blood Count 5.63 K/uL (4.8-10.8)
--- NOTE | 2021-09-11 08:27 | Gynecologic Progress Note ---
Date of Service September 11, 2021 Assessment & Plan (1) Postoperative abscess: Plan: -Plan to continue IV antibx till 5pm this evening when 24 hours and transition to PO. Will allow to eat now as clinically improved, CBC is stable from yesterday, just suggestive of some dilution c/w her having fluids overnight -US was suggestive of avascular retained POCs however pt is endorsing only spotting, h/h is stable. Given timing of delivery, I also think is possible that it is placental site involution but as she is stable from bleeding standpoint, I think will monitor for now given risk of perforation so close to delivery. If remains stable, will plan for repeat US to re-assess outpt Admission and Anticipated Discharge Date Admission Date: September 10, 2021 Subjective Feeling better this morning. Pain above incision is improved, just having usual soreness of incision. Just having spotting lochia. Tolerated PO, voiding w/o difficulty, continuing to pass gas. Denies fevers, chills, n/v, KIDD, CP, SOB Physical Exam Constitutional: WD/WN, vitals as above Respiratory: normal respiratory effort, lungs clear to auscultation Cardiovascular: RRR, no murmur, no edema Gastrointestinal (Abdomen): Inspection/Auscultation: abdomen normal to inspection and + abdominal surgical scar (c/d/i) Percussion/Palpation: + abdomen tender (minimally tender above incision compared to yesterday) and abdomen soft; no guarding Results & Data ([facility]) Vital Signs (Past 12 Hours) Vital Signs Temp Pulse Resp BP Pulse Ox 09/11/21 04:15 98.4 F 76 18 107/66 97 09/10/21 23:15 98.4 F 84 18 116/72 97 PG Care Time/CCT Total # of Minutes Spent Total Time Spent with Patient: Total time spent is greater than 50% in coordination of care (as documented) at patient's floor/unit and/or counseling patient: Coding Level of Care Code 50726 Subseq Obs Care Lvl 2 Diagnoses Postoperative abscess T81.49XA
[2021-09-11] MEDS: PATIENT'S OWN CONTROLLED MED 2 PO SCH (09:00)
[2021-09-11] MEDS ORDERED: PATIENT'S OWN CONTROLLED MED 1 PO SCH (09:00)
[2021-09-11] MEDS: METHADONE ORAL SOLN 2 MG/ML PO SCH (09:15)
[2021-09-11] MEDS: PRENATAL VITAMIN 1 TAB PO SCH (09:15)
[2021-09-11] MEDS: LACTATED RINGER'S 1,000 ML IV SCH ×2 (09:25→16:54)
[2021-09-11] MEDS: LABETALOL HCL 200 MG TAB PO SCH ×2 (09:25→21:49)
[2021-09-11] MEDS: CEFEPIME 2,000 MG in SYRINGE 0 ML IV SCH (09:26)
[2021-09-11] MEDS: CLINDAMYCIN 600 MG in DEXTROSE 5% 50 ML IV SCH (09:27)
[2021-09-11] MEDS ORDERED: METOCLOPRAMIDE HCL 5 MG TABLET PO PRN (11:04)
[2021-09-11] MEDS: NICOTINE 14 MG/24 HR PATCH TD SCH (11:15)
[2021-09-11] MEDS: CLINDAMYCIN HCL 150 MG CAP PO SCH ×2 (17:03→21:49)
[2021-09-11] MEDS: SULFAMETHOXAZOLE/TRIMETHOPRIM DS 800/160MG TAB PO SCH (18:56)
[2021-09-12] MEDS: IBUPROFEN 600 MG TAB PO SCH ×2 (00:40→05:38)
[2021-09-12] MEDS: LACTATED RINGER'S 1,000 ML IV SCH (00:42)
[2021-09-12] MEDS: ACETAMINOPHEN 500 MG TAB PO SCH (05:38)
[2021-09-12] MEDS: CLINDAMYCIN HCL 150 MG CAP PO SCH (05:39)
--- NOTE | 2021-09-12 06:49 | Gynecologic Progress Note ---
Date of Service September 12, 2021 Assessment & Plan (1) Postoperative abscess: Plan: -Doing well on oral antibiotics. With clinical improvement, I think ok for d/c home. Will go home on oral antibiotics x 14d and outpt f/u in 1 wk -US was suggestive of avascular retained POCs however pt is endorsing only spotting, h/h is stable. Will plan for repeat US to re-assess outpt Admission and Anticipated Discharge Date Admission Date: September 10, 2021 Subjective BRANDON overnight. Resting comfortably, pt feels markedly better. Just some very mild typical CS pain around incision. She was able to ambulate and move around much easier yesterday. Also had BM yesterday which helped as well. Denies fevers, chills, n/v, KIDD, CP, SOB Physical Exam Constitutional: WD/WN, vitals as above Respiratory: normal respiratory effort; no respiratory distress and no labored breathing Cardiovascular: RRR, no murmur, no edema Gastrointestinal (Abdomen): Inspection/Auscultation: abdomen normal to inspection and + abdominal surgical scar (c/d/i); abdomen not distended (mildly) Percussion/Palpation: abdomen soft; abdomen nontender, no guarding, abdomen not rigid and no abdominal mass Results & Data ([facility]) Vital Signs (Past 12 Hours) Vital Signs Temp Pulse Resp BP Pulse Ox 09/12/21 03:15 97.9 F 76 20 133/83 97 09/11/21 23:15 97.9 F 66 20 127/82 97 09/11/21 19:40 98.4 F 85 18 124/85 98 PG Care Time/CCT Total # of Minutes Spent Total Time Spent with Patient: Total time spent is greater than 50% in coordination of care (as documented) at patient's floor/unit and/or counseling patient: Coding Level of Care Code None Diagnoses Postoperative abscess T81.49XA
[2021-09-12] MEDS: SULFAMETHOXAZOLE/TRIMETHOPRIM DS 800/160MG TAB PO SCH (08:34)
[2021-09-12] MEDS: METHADONE ORAL SOLN 2 MG/ML PO SCH (08:34)
[2021-09-12] MEDS: PRENATAL VITAMIN 1 TAB PO SCH (08:34)
[2021-09-12] MEDS: NICOTINE 14 MG/24 HR PATCH TD SCH (08:35)
[2021-09-12] MEDS: LABETALOL HCL 200 MG TAB PO SCH (08:36)
[2021-09-12] MEDS: PATIENT'S OWN CONTROLLED MED 2 PO SCH (09:20)
[2021-09-12] MEDS ORDERED: VANCOMYCIN TROUGH ONE (15:30)
== END 2021-09-12 10:35 | disposition home or self-care (01) ==
LOC: 4S2 09:26 → ED 09:26 → 4S2 17:37